=== PATIENT | female | born 2000 | race Caucasian/White ===

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

== ENCOUNTER 2020-01-18 12:38 | Emergency (ER) | payer BC, SELFPAY ==
[2020-01-18 12:40] VITALS: BP 126/87; PULSE 100; PULSE 107; RESP 18; TEMP 37.2; O2SAT 98; O2SAT 99; BMI 38.7
[2020-01-18] MEDS: 0.9% Normal Saline 1,000 ML 1000 ML IV (12:58)
[2020-01-18] MEDS: Metoclopramide 10 MG/2 ML Vial IV (12:58)
--- NOTE | 2020-01-18 13:43 | ED.DCSUM_ITS ---
- ER Visit Summary Date of Service: 01/18/20 Chief Complaint: Nausea and vomiting History of Present Illness: The patient is a 19 F who is 13 weeks . She had a previous ultrasound that showed a live intrauterine . She is denying any abdominal pain, vaginal bleeding, or vaginal discharge. She is having nausea and vomiting since yesterday. She took Zofran at home but it was not helping. She attempted a Phenergan suppository, but it did not help. She denies any other complaints today. Physical Examination: Afebrile and vital signs unremarkable except for heart rate of 107. Patient appears nontoxic and in no acute distress. Skin appears normal. Extremities nontender and without edema. Abdomen is soft. Test Results: None indicated Emergency Department Course and Treatment: Patient treated with IV fluids and Reglan. On reevaluation, she was feeling much better. No further nausea or vomiting. Patient requesting discharge. Will be discharged with a course of Reglan. Follow-up with INNERSOLE MAKER. Return for any new or worsening issues. Treatment Plan: As above Disposition: Discharge Impression: Nausea and vomiting in This note was generated with [employer] dictation software. It may contain incorrect words, spelling, and punctuation that were not noted in review of the chart prior to signing ED Disposition - Plan for ED Patient: Referrals: Damien Allred MD [Primary Care Provider] -
--- NOTE | 2020-01-18 13:45 | ED.DEP ---
ED Disposition - Plan for ED Patient: Instructions: ED Nausea Vomiting Adult Prescriptions: Metoclopramide [Reglan] 10 mg PO 4X/DAY PRN #20 tab PRN Reason: Headache Prescription Printed Additional Instructions: follow up with your automobile body customizer
[2020-01-18 15:46] VITALS: BP 104/59; PULSE 75; RESP 16; O2SAT 96
== END 2020-01-18 15:47 | disposition home or self-care (01) ==
LOC: ED 13:14
PROVIDERS: Emergency Provider Emergency Medicine; PCP Family Medicine
DX: O21.9 Vomiting of pregnancy, unspecified (principal); Z79.899 Other long term (current) drug therapy; Z3A.13 13 weeks gestation of pregnancy
CPT/HCPCS: 96361; 96374; 99283; J7030

== ENCOUNTER → 2020-02-10 | Outpatient (CLI) | payer BC, SELFPAY ==
[2020-01-18 12:40] VITALS: BMI 38.7
[2020-02-14 03:06] LABS: AFP MoM Value 1.24 (.); AFP Value-EIA 34.9 ng/mL (.); Comment Report (.); DIA MoM Value 0.45 (.); DIA Value-EIA 63.67 pg/mL (.); DSR (By Age) 1169 (.); DSR (Second Trimester) 10000 (.); Gestat. Age Based On As provided (.); Gestational Age 16.3 WEEKS (.); Insulin Dep Diabetes No (.); Maternal Age At EDD 19.6 yr (.); hCG MoM 0.67 (.); hCG Value 21920 mIU/mL (.)
== END | disposition home or self-care (01) ==
LOC: LABSPEC 14:45
PROVIDERS: PCP Family Medicine; Referring Provider Obstetrics & Gynecology; Visit Provider Obstetrics & Gynecology
DX: Z34.82 Encounter for supervision of other normal pregnancy, second trimester (principal)
CPT/HCPCS: 82105; 82677; 84702

== ENCOUNTER → 2020-02-17 | Outpatient (CLI) | payer BC, SELFPAY ==
[2020-01-18 12:40] VITALS: BMI 38.7
[2020-02-17 16:41] LABS: Color, Urine Yellow (Yellow); Glucose, Dipstick Normal (Normal); Ketone-Dipstick Negative (Negative); Leukocyte Esterase-Dipstick 500 /ul (Negative); Nitrite-Dipstick Negative (Negative); Occult Blood-Urine 10 /ul (Negative); Protein-Dipstick Negative (Negative); Specific Gravity, Urine 1.015 (1.002-1.030); Urine Bilirubin Dipstick Negative (Negative); Urine Clarity Sl. Cloudy (Clear); Urine Urobilinogen Normal (Normal)
--- OUTSIDE RECORDS SUMMARY | 2020-07-24 07:51 | XMS RPT_ITS | CCD ---
:2000 External Reference #:[id number] Author Organization [facility] Care Team Providers Name Role Phone Carolina FRAME COVERER, E Unavailable Unavailable Carolina FRAME COVERER, E Unavailable Unavailable Problems Category Problem Name Status Date Location Deficiency and other Anemia Completed 03-26-2017 - [facility] Now Clinic anemia (73761) Unclassified Contact with and Completed 03-26-2017 - [facility] Now Cli hank (suspected) exposure (27170) to other hazardous, chiefly nonmedicinal, chemicals Results Result Name Value Range Unit Interpretation Flag Date Location cbc on 2020-07-20 Erythrocyte distribution 19.3 11.5-15.5 % High 07-20 [facility] width (RBC) [Ratio] ([place]) (62605) Comment: Performed By: #### HFP, URIC , TSH, LD, ANEU, ADIFF, CBC #### [address] [address] Hematocrit (Bld) [Volume 27.2 34.0-46.0 % Low 07-20 [facility] fraction] ([place]) (0000 0) Comment: Performed By: #### HFP, URIC , TSH, LD, ANEU, ADIFF, CBC #### [address] [address] Hemoglobin (Bld) 8.7 12.0-16.0 G/dL Low 07-20-2020 [facility] [Mass/Vol] ([place]) (000 00) Comment: Performed By: #### HFP, URIC , TSH, LD, ANEU, ADIFF, CBC #### [address] [address] MCH (RBC) [Entitic mass] 27.0 27.0-33.0 pg Normal 07-20 [facility] ([place]) (0000 0) Comment: Performed By: #### HFP, URIC , TSH, LD, ANEU, ADIFF, CBC #### [address] [address] MCHC (RBC) [Mass/Vol] 32.1 32.0-36.0 G/dL Normal 07-20-20 20 [facility] ([place]) (0000 0) Comment: Performed By: #### HFP, URIC , TSH, LD, ANEU, ADIFF, CBC #### [address] [address] MCV (RBC) [Entitic vol] 84.0 80.0-99.0 fL Normal 2019 [facility] ([place]) (0000 0) Comment: Performed By: #### HFP, URIC , TSH, LD, ANEU, ADIFF, CBC #### [address] [address] Platelet mean volume 9.3 6.6-10.5 fL Normal 0 [facility] (Bld) [Entitic vol] ([place]) (23245) Comment: Performed By: #### HFP, URIC , TSH, LD, ANEU, ADIFF, CBC #### [address] [address] Platelets (Bld) [#/Vol] 192 150-450 10 3/mcL Normal 2019 [facility] ([place]) (05127) Comment: Performed By: #### HFP, URIC , TSH, LD, ANEU, ADIFF, CBC #### [address] [address] RBC (Bld) [#/Vol] 3.24 4.10-5.30 10 6/mcL Low 07-20-2020 [facility] ([place]) (0000 0) Comment: Performed By: #### HFP, URIC , TSH, LD, ANEU, ADIFF, CBC #### [address] [address] WBC (Bld) [#/Vol] 15.80 4.50-10.80 10 3/mcL High 07-20-2020 [facility] ([place]) (0000 0) Comment: Performed By: #### HFP, URIC , TSH, LD, ANEU, ADIFF, CBC #### [address] [address] .neuabs on Neutrophils (Bld) 14.00 2.25-8.10 10 3/mcL High 07-20-2020 [facility] [#/Vol] [facility] ([place]) ([address]178) Comment: Performed By: #### HFP, URIC , TSH, LD, ANEU, ADIFF, CBC #### [address] [address] .auto diff on 07-20 Ammonia (P) [Mass/Vol] 0.80 0.09-1.40 10 3/mcL Normal 020 [facility] ([place]) (44307) Comment: Performed By: #### HFP, URIC , TSH, LD, ANEU, ADIFF, CBC #### [address] [address] Basophils (Bld) 0.00 0.00-0.27 10 3/mcL Normal 07-20-2020 [facility] [#/Vol] [facility] ([place]) (93829) Comment: Performed By: #### HFP, URIC , TSH, LD, ANEU, ADIFF, CBC #### [address] [address] Basophils/100 WBC (Bld) 0.1 0.0-2.5 % Normal 2019 [facility] ([place]) (0000 0) Comment: Performed By: #### HFP, URIC , TSH, LD, ANEU, ADIFF, CBC #### [address] [address] Eosinophils (Bld) 0.00 0.00-0.65 10 3/mcL Normal 07-20-2020 [facility] [#/Vol] [facility] ([place]) (81809) Comment: Performed By: #### HFP, URIC , TSH, LD, ANEU, ADIFF, CBC #### [address] [address] Eosinophils/100 WBC (Bld) 0.1 0.0-6.0 % Normal [facility] ([place]) (0000 0) Comment: Performed By: #### HFP, URIC , TSH, LD, ANEU, ADIFF, CBC #### [address] [address] Lymphocytes (Bld) 0.90 0.90-4.32 10 3/mcL Normal 07-20-2020 [facility] [#/Vol] [facility] ([place]) (43651) Comment: Performed By: #### HFP, URIC , TSH, LD, ANEU, ADIFF, CBC #### [address] [address] Lymphocytes/100 WBC (Bld) 5.7 20.0-40.0 % Low 10- [facility] ([place]) (0000 0) Comment: Performed By: #### HFP, URIC , TSH, LD, ANEU, ADIFF, CBC #### [address] [address] Monocytes/100 WBC (Bld) 5.1 2.0-13.0 % Normal 2019 [facility] ([place]) (0000 0) Comment: Performed By: #### HFP, URIC , TSH, LD, ANEU, ADIFF, CBC #### [address] [address] Neutrophils/100 WBC (Bld) 89.0 50.0-75.0 % High 10- [facility] ([place]) (0000 0) Comment: Performed By: #### HFP, URIC , TSH, LD, ANEU, ADIFF, CBC #### [address] [address] tabs on 2020-07-18 Antibody Screen Tango Negative ABSC Normal [facility] ([place]) (0000 0) Comment: Performed By: #### HFP, URIC , TSH, LD, ANEU, ADIFF, CBC #### [address] [address] tabo on 2020-07-18 ABO/Rh Interp O POS 07-18-2020 [facility] ([place]) (91190) Comment: Performed By: #### HFP, URIC , TSH, LD, ANEU, ADIFF, CBC #### [facility] [address] [place], [place] [address] cbc on 2020-07-18 Erythrocyte distribution 18.6 11.5-15.5 % High 07-18 [facility] width (RBC) [Ratio] ([place]) (47847) Comment: Performed By: #### HFP, URIC , TSH, LD, ANEU, ADIFF, CBC #### [address] [address] Hematocrit (Bld) [Volume 30.0 34.0-46.0 % Low 07-18 [facility] fraction] ([place]) (0000 0) Comment: Performed By: #### HFP, URIC , TSH, LD, ANEU, ADIFF, CBC #### [address] [address] Hemoglobin (Bld) 9.8 12.0-16.0 G/dL Low 07-18-2020 [facility] [Mass/Vol] ([place]) (000 00) Comment: Performed By: #### HFP, URIC , TSH, LD, ANEU, ADIFF, CBC #### [address] [address] MCH (RBC) [Entitic mass] 27.6 27.0-33.0 pg Normal 07-18 [facility] ([place]) (0000 0) Comment: Performed By: #### HFP, URIC , TSH, LD, ANEU, ADIFF, CBC #### [address] [address] MCHC (RBC) [Mass/Vol] 32.5 32.0-36.0 G/dL Normal 07-18-20 [facility] ([place]) (0000 0) Comment: Performed By: #### HFP, URIC , TSH, LD, ANEU, ADIFF, CBC #### [address] [address] MCV (RBC) [Entitic vol] 84.9 80.0-99.0 fL Normal 2019 [facility] ([place]) (0000 0) Comment: Performed By: #### HFP, URIC , TSH, LD, ANEU, ADIFF, CBC #### [address] [address] Platelet mean volume 10.1 6.6-10.5 fL Normal 0 [facility] (d) [Entitic vol] ([place]) (63460) Comment: Performed By: #### HFP, URIC , TSH, LD, ANEU, ADIFF, CBC #### [address] [address] Platelets (Bld) [#/Vol] 197 150-450 10 3/mcL Normal 2019 [facility] ([place]) (79203) Comment: Performed By: #### HFP, URIC , TSH, LD, ANEU, ADIFF, CBC #### [place] [id number] RBC (Bld) [#/Vol] 3.54 4.10-5.30 10 6/mcL Low 07-18-2020 [facility] ([place]) (0000 0) Comment: Performed By: #### HFP, URIC , TSH, LD, ANEU, ADIFF, CBC #### [address] [address] WBC (Bld) [#/Vol] 9.00 4.50-10.80 10 3/mcL Normal 07-18-2020 [facility] ([place]) (56803) Comment: Performed By: #### HFP, URIC , TSH, LD, ANEU, ADIFF, CBC #### [address] [address] .morph on 7 Anisocytosis Ql (Bld) Slight Normal 07-18-20 20 [facility] ([place]) (22254) Comment: Performed By: #### HFP, URIC , TSH, LD, ANEU, ADIFF, CBC #### [address] [address] Platelets (Bld) [#/Vol] Normal Normal 2019 [facility] ([place]) (94352) Comment: Performed By: #### HFP, URIC , TSH, LD, ANEU, ADIFF, CBC #### [address] [address] Polychrom Slight Normal 07-18-2020 [facility] ([place]) (48653) Comment: Performed By: #### HFP, URIC , TSH, LD, ANEU, ADIFF, CBC #### [address] [address] .manual diff on 202 Basophil %, Manual 0.0 0.0-2.5 % Normal 07-18-2020 [facility] ([place]) (72022) Comment: Performed By: #### HFP, URIC , TSH, LD, ANEU, ADIFF, CBC #### [address] [address] Basophil, Abs Manual 0.00 0.00-0.27 10 3/mcL Normal 0 [facility] ([place]) (46161) Comment: Performed By: #### HFP, URIC , TSH, LD, ANEU, ADIFF, CBC #### [address] [address] Cells Counted 100 Normal 07-18-2020 [facility] ([place]) (30517) Comment: Performed By: #### HFP, URIC , TSH, LD, ANEU, ADIFF, CBC #### [address] [address] Eosinophil %, Manual 0.0 0.0-6.0 % Normal 0 [facility] ([place]) (84981) Comment: Performed By: #### HFP, URIC , TSH, LD, ANEU, ADIFF, CBC #### [address] [address] Eosinophil, Abs Manual 0.00 0.00-0.65 10 3/mcL Normal 020 [facility] ([place]) (03975) Comment: Performed By: #### HFP, URIC , TSH, LD, ANEU, ADIFF, CBC #### [address] [address] Lymphocyte %, Manual 11.0 20.0-40.0 % Low 0 [facility] ([place]) (42981) Comment: Performed By: #### HFP, URIC , TSH, LD, ANEU, ADIFF, CBC #### [address] [address] Lymphocyte, Abs Manual 0.99 0.90-4.32 10 3/mcL Normal 020 [facility] ([place]) (77338) Comment: Performed By: #### HFP, URIC , TSH, LD, ANEU, ADIFF, CBC #### [address] [address] Monocyte %, Manual 3.0 2.0-13.0 % Normal 07-18-2020 [facility] ([place]) (18667) Comment: Performed By: #### HFP, URIC , TSH, LD, ANEU, ADIFF, CBC #### [address] [address] Monocyte, Abs Manual 0.27 0.09-1.40 10 3/mcL Normal 0 [facility] ([place]) (86851) Comment: Performed By: #### HFP, URIC , TSH, LD, ANEU, ADIFF, CBC #### [address] [address] Myelocyte 1.0 % Normal 07-18-2020 [facility] ([place]) (92862) Comment: Performed By: #### HFP, URIC , TSH, LD, ANEU, ADIFF, CBC #### [address] [address] Neutrophil %, Manual 85.0 50.0-75.0 % High 0 [facility] ([place]) (90763) Comment: Performed By: #### HFP, URIC , TSH, LD, ANEU, ADIFF, CBC #### [address] [address] Neutrophil, Abs Manual 7.65 2.25-8.10 10 3/mcL Normal 020 [facility] ([place]) (97415) Comment: Performed By: #### HFP, URIC , TSH, LD, ANEU, ADIFF, CBC #### [address] [address] crcl ur on BSA Lab 2.12 Normal 07-10-2020 [facility] ([place]) (89482) Comment: Performed By: #### HFP, URIC , TSH, LD, ANEU, ADIFF, CBC #### [place] [address] Cr Clearance 110 88-128 ml/min/1.73sqm Normal 07-10-2020 [facility] ([place]) (0000 0) Comment: Performed By: #### HFP, URIC , TSH, LD, ANEU, ADIFF, CBC #### [place] [address] Creatinine [Mass/Vol] 0.49 0.50-1.20 mg/dL Low 07-10-20 20 [facility] ([place]) (0000 0) Comment: Performed By: #### HFP, URIC , TSH, LD, ANEU, ADIFF, CBC #### [place] [address] Height Lab 157.48 cm Normal 07-10-2020 [facility] ([place]) (73122) Comment: Performed By: #### HFP, URIC , TSH, LD, ANEU, ADIFF, CBC #### [place] [address] .tv creatinine on Collection Period 24 hour Normal 07-10-2020 [facility] ([place]) (22367) Comment: Performed By: #### HFP, URIC , TSH, LD, ANEU, ADIFF, CBC #### [place] [address] Creatinine [Mass/Vol] 0.9 0.6-1.6 g/24hr Normal 07-10-20 20 [facility] ([place]) (0000 0) Comment: Performed By: #### HFP, URIC , TSH, LD, ANEU, ADIFF, CBC #### [place] [address] U24 Total Volume 779 mL/24hr Normal 07-10-2020 [facility] ([place]) (05529) Comment: Performed By: #### HFP, URIC , TSH, LD, ANEU, ADIFF, CBC #### [place] [address] Creatinine [Mass/Vol] 121.9 mg/dL Normal 07-10-20 20 [facility] ([place]) (79125) Comment: Performed By: #### HFP, URIC , TSH, LD, ANEU, ADIFF, CBC #### [address] [address] cre on 2020-07-09 Creatinine [Mass/Vol] 0.49 0.50-1.20 mg/dL Low 07-09-20 20 [facility] ([place]) (0000 0) Comment: Performed By: #### HFP, URIC , TSH, LD, ANEU, ADIFF, CBC #### [address] [address] .gfr on 2020-07-09 GFR >60 Normal 0 [facility] ([place]) (62895) Comment: Result Comment: GFR Population mean for Afri can Portuguese, Non- Americans Ages 20-29 = 116 mL/min/1.73 sq.m. Ages 30-39 = 107 mL/min/1.73 sq.m. Ages 40-49 = 99 mL/min/1.73 sq.m. Ages 50-59 = 93 mL/min/1.73 sq.m. Ages 60-69 = 85 mL/min/1.73 sq.m. Ages 70+ = 75 mL/min/1.73 sq .m. Chronic Kidney Disease: Less than 60 mL/min/1.73 square meters End Stage Renal Disease: Les s than 15 mL/min/1.73 square meters Performed By: #### HFP, URIC , TSH, LD, ANEU, ADIFF, CBC #### [address] [address] GFR Non- >60 Normal 07-09 [facility] ([place]) (31875) Comment: Result Comment: GFR Population mean for Afri can Portuguese, Non- Americans Ages 20-29 = 116 mL/min/1.73 sq.m. Ages 30-39 = 107 mL/min/1.73 sq.m. Ages 40-49 = 99 mL/min/1.73 sq.m. Ages 50-59 = 93 mL/min/1.73 sq.m. Ages 60-69 = 85 mL/min/1.73 sq.m. Ages 70+ = 75 mL/min/1.73 sq .m. Chronic Kidney Disease: Less than 60 mL/min/1.73 square meters End Stage Renal Disease: Les s than 15 mL/min/1.73 square meters Performed By: #### HFP, URIC , TSH, LD, ANEU, ADIFF, CBC #### [address] [address] rpcur on 2020-07-06 Protein [Mass/Vol] 8.4 G/dL Normal 07-06-2020 [facility] ([place]) (79867) Comment: Performed By: #### HFP, URIC , TSH, LD, ANEU, ADIFF, CBC #### [address] [address] U Creatinine 42.9 mg/dL Normal 07-06-2020 [facility] ([place]) (14929) Comment: Performed By: #### HFP, URIC , TSH, LD, ANEU, ADIFF, CBC #### [address] [address] U Ratio Prot/Creat 0.2 ratio Normal 07-06-2020 [facility] ([place]) (57421) Comment: Result Comment: result calcu lated by rule GL_UR_PROT_NOTCALC_OLD (U Protein/U Creatinine) Performed By: #### HFP, URIC , TSH, LD, ANEU, ADIFF, CBC #### [address] [address] cur on 2020-07-06 CUR . Normal 07-06-2020 [facility] MICRO - Microbiology [facility] ([place]) ([id number]) PROCEDURE: Urine Culture [*1] SOURCE: Urine, Clean Catch BODY SITE: COLLECTED DATE/TIME: 07/04/20 20 16:32 EDT RECEIVED DATE/TIME: 07/04/2020 19:23 EDT START DATE/TIME: 07/04/2020 19:24 EDT FREE TEXT SOURCE: FINAL REPORTS Final Report [] Verified Date/Time/Personnel: 07/06/2020 08:05 EDT 50,000 - 100,000 cfu/ml Multiple bacterial morphotypes present. Probable Contamination. Suggest recollection if clinically indicated. PRELIMINARY REPORTS Preliminary Report [] Verified Date/Time/Personnel: 07/05/2020 11:38 EDT Culture results pending. Performing Locations *1: This test was performed at: [facility], [address] [place] [address], [id number] , [place] Comment: Performed By: #### HFP, URIC , TSH, LD, ANEU, ADIFF, CBC #### [address] [address] cmp on 2020-07-06 Albumin [Mass/Vol] 2.4 3.2-4.8 G/dL Low 07-06-2020 [facility] ([place]) (18736) Comment: Performed By: #### HFP, URIC , TSH, LD, ANEU, ADIFF, CBC #### [address] [address] Albumin/Globulin [Mass ratio] 0.7 0.9-1.6 ratio Low 07-06-2020 [facility] ([place]) (74787) Comment: Performed By: #### HFP, URIC , TSH, LD, ANEU, ADIFF, CBC #### [address] [address] ALP [Catalytic activity/Vol] 153 28-126 U/L High 0 07-06-2020 [facility] ([place]) (0000 0) Comment: Performed By: #### HFP, URIC , TSH, LD, ANEU, ADIFF, CBC #### [address] [address] ALT [Catalytic activity/Vol] <8 10-49 U/L Low 0 07-06-2020 [facility] ([place]) (0000 0) Comment: Performed By: #### HFP, URIC , TSH, LD, ANEU, ADIFF, CBC #### [address] [address] AST [Catalytic activity/Vol] 12 8-34 U/L Normal 0 07-06-2020 [facility] ([place]) (0000 0) Comment: Performed By: #### HFP, URIC , TSH, LD, ANEU, ADIFF, CBC #### [address] [address] Bili Total 0.20 0.20-1.20 mg/dL Normal 07-06-2020 [facility] ([place]) (75074) Comment: Result Comment: Use of this assay is not recommended for patients undergoing treatment with eltrombopag d ue to the potential for falsely elevated results. Performed By: #### HFP, URIC , TSH, LD, ANEU, ADIFF, CBC #### [address] [address] Calcium [Mass/Vol] 8.5 8.7-10.4 mg/dL Low 07-06-2020 [facility] ([place]) (76926) Comment: Result Comment: Note - New Reference Range in effect 20 Performed By: #### HFP, URIC , TSH, LD, ANEU, ADIFF, CBC #### [place] [id number] Chloride [Moles/Vol] 106 98-110 mEq/L Normal 0 [facility] ([place]) (0000 0) Comment: Performed By: #### HFP, URIC , TSH, LD, ANEU, ADIFF, CBC #### [address] [address] CO2 [Moles/Vol] 22 22-32 mEq/L Normal 07-06-2020 [facility] ([place]) (21725) Comment: Performed By: #### HFP, URIC , TSH, LD, ANEU, ADIFF, CBC #### [address] [address] Creatinine [Mass/Vol] 0.48 0.50-1.20 mg/dL Low 07-06-20 20 [facility] ([place]) (0000 0) Comment: Performed By: #### HFP, URIC , TSH, LD, ANEU, ADIFF, CBC #### [address] [address] Electrolyte Balance 10.0 4.0-15.0 mEq/L Normal 07-06-2020 [facility] ([place]) (0000 0) Comment: Performed By: #### HFP, URIC , TSH, LD, ANEU, ADIFF, CBC #### [address] [address] Globulin (S) [Mass/Vol] 3.3 1.5-3.8 G/dL Normal 2019 [facility] ([place]) (0000 0) Comment: Performed By: #### HFP, URIC , TSH, LD, ANEU, ADIFF, CBC #### [address] [address] Glucose [Mass/Vol] 102 70-110 mg/dL Normal 07-06-2020 [facility] ([place]) (48444) Comment: Performed By: #### HFP, URIC , TSH, LD, ANEU, ADIFF, CBC #### [address] [address] Potassium [Moles/Vol] 4.2 3.5-5.0 mEq/L Normal 07-06-20 [facility] ([place]) (0000 0) Comment: Performed By: #### HFP, URIC , TSH, LD, ANEU, ADIFF, CBC #### [address] [address] Protein [Mass/Vol] 5.7 5.7-8.2 G/dL Normal 07-06-2020 [facility] ([place]) (23035) Comment: Result Comment: Note - New Reference Range in effect 20 Performed By: #### HFP, URIC , TSH, LD, ANEU, ADIFF, CBC #### [address] [address] Sodium [Moles/Vol] 138 136-145 mEq/L Normal 07-06-2020 [facility] ([place]) (04508) Comment: Performed By: #### HFP, URIC , TSH, LD, ANEU, ADIFF, CBC #### [address] [address] Urea nitrogen [Mass/Vol] 6.0 8.0-22.0 mg/dL Low 07-06 [facility] ([place]) (0000 0) Comment: Performed By: #### HFP, URIC , TSH, LD, ANEU, ADIFF, CBC #### [address] [address] Urea nitrogen/Creatinine 12.5 10.0-22.0 ratio Normal 07-06 [facility] [Mass ratio] [facility] ([place]) (75507) Comment: Performed By: #### HFP, URIC , TSH, LD, ANEU, ADIFF, CBC #### [address] [address] cbc on 2020-07-06 Erythrocyte distribution 15.9 11.5-15.5 % High 07-06 [facility] width (RBC) [Ratio] ([place]) (20618) Comment: Performed By: #### HFP, URIC , TSH, LD, ANEU, ADIFF, CBC #### [address] [address] Hematocrit (Bld) [Volume 29.4 34.0-46.0 % Low 07-06 [facility] fraction] ([place]) (0000 0) Comment: Performed By: #### HFP, URIC , TSH, LD, ANEU, ADIFF, CBC #### [address] [address] Hemoglobin (Bld) 9.6 12.0-16.0 G/dL Low 07-06-2020 [facility] [Mass/Vol] ([place]) (000 00) Comment: Performed By: #### HFP, URIC , TSH, LD, ANEU, ADIFF, CBC #### [address] [address] MCH (RBC) [Entitic mass] 26.8 27.0-33.0 pg Low 07-06 [facility] ([place]) (0000 0) Comment: Performed By: #### HFP, URIC , TSH, LD, ANEU, ADIFF, CBC #### [address] [address] MCHC (RBC) [Mass/Vol] 32.6 32.0-36.0 G/dL Normal 07-06-20 [facility] ([place]) (0000 0) Comment: Performed By: #### HFP, URIC , TSH, LD, ANEU, ADIFF, CBC #### [address] [address] MCV (RBC) [Entitic vol] 82.2 80.0-99.0 fL Normal 2019 [facility] ([place]) (0000 0) Comment: Performed By: #### HFP, URIC , TSH, LD, ANEU, ADIFF, CBC #### [address] [address] Platelet mean volume 9.2 6.6-10.5 fL Normal 0 [facility] (Bld) [Entitic vol] ([place]) (73118) Comment: Performed By: #### HFP, URIC , TSH, LD, ANEU, ADIFF, CBC #### [address] [address] Platelets (Bld) [#/Vol] 222 150-450 10 3/mcL Normal 2019 [facility] ([place]) (24334) Comment: Performed By: #### HFP, URIC , TSH, LD, ANEU, ADIFF, CBC #### [address] [address] RBC (Bld) [#/Vol] 3.57 4.10-5.30 10 6/mcL Low 07-06-2020 [facility] ([place]) (0000 0) Comment: Performed By: #### HFP, URIC , TSH, LD, ANEU, ADIFF, CBC #### [address] [address] WBC (Bld) [#/Vol] 10.00 4.50-10.80 10 3/mcL Normal 07-06-2020 [facility] ([place]) (17028) Comment: Performed By: #### HFP, URIC , TSH, LD, ANEU, ADIFF, CBC #### [address] [address] .neuabs on Neutrophils (Bld) 8.10 2.25-8.10 10 3/mcL Normal 07-06-2020 [facility] [#/Vol] [facility] ([place]) (73803) Comment: Performed By: #### HFP, URIC , TSH, LD, ANEU, ADIFF, CBC #### [place] [id number] [address] [place] [address] .gfr on 2020-07-06 GFR Non- >60 Normal 07-06 [facility] ([place]) (56124) Comment: Result Comment: GFR Population mean for Afri can Portuguese, Non- Americans Ages 20-29 = 116 mL/min/1.73 sq.m. Ages 30-39 = 107 mL/min/1.73 sq.m. Ages 40-49 = 99 mL/min/1.73 sq.m. Ages 50-59 = 93 mL/min/1.73 sq.m. Ages 60-69 = 85 mL/min/1.73 sq.m. Ages 70+ = 75 mL/min/1.73 sq .m. Chronic Kidney Disease: Less than 60 mL/min/1.73 square meters End Stage Renal Disease: Les s than 15 mL/min/1.73 square meters Performed By: #### HFP, URIC , TSH, LD, ANEU, ADIFF, CBC #### [address] [address] GFR >60 Normal 0 [facility] ([place]) (27930) Comment: Result Comment: GFR Population mean for Afri can Portuguese, Non- Americans Ages 20-29 = 116 mL/min/1.73 sq.m. Ages 30-39 = 107 mL/min/1.73 sq.m. Ages 40-49 = 99 mL/min/1.73 sq.m. Ages 50-59 = 93 mL/min/1.73 sq.m. Ages 60-69 = 85 mL/min/1.73 sq.m. Ages 70+ = 75 mL/min/1.73 sq .m. Chronic Kidney Disease: Less than 60 mL/min/1.73 square meters End Stage Renal Disease: Les s than 15 mL/min/1.73 square meters Performed By: #### HFP, URIC , TSH, LD, ANEU, ADIFF, CBC #### [facility] [address] [place] [phone] .auto diff on 07-06 Ammonia (P) [Mass/Vol] 0.50 0.09-1.40 10 3/mcL Normal 020 [facility] ([place]) (98181) Comment: Performed By: #### HFP, URIC , TSH, LD, ANEU, ADIFF, CBC #### [address] [address] Basophils (Bld) 0.00 0.00-0.27 10 3/mcL Normal 07-06-2020 [facility] [#/Vol] [facility] ([place]) (07744) Comment: Performed By: #### HFP, URIC , TSH, LD, ANEU, ADIFF, CBC #### [address] [address] Basophils/100 WBC (Bld) 0.1 0.0-2.5 % Normal 2019 [facility] ([place]) (0000 0) Comment: Performed By: #### HFP, URIC , TSH, LD, ANEU, ADIFF, CBC #### [address] [address] Eosinophils (Bld) 0.00 0.00-0.65 10 3/mcL Normal 07-06-2020 [facility] [#/Vol] [facility] ([place]) (72769) Comment: Performed By: #### HFP, URIC , TSH, LD, ANEU, ADIFF, CBC #### [address] [address] Eosinophils/100 WBC (Bld) 0.4 0.0-6.0 % Normal 06-13 [facility] ([place]) (0000 0) Comment: Performed By: #### HFP, URIC , TSH, LD, ANEU, ADIFF, CBC #### [address] [address] Lymphocytes (Bld) 1.20 0.90-4.32 10 3/mcL Normal 07-06-2020 [facility] [#/Vol] [facility] ([place]) ([id number]) Comment: Performed By: #### HFP, URIC , TSH, LD, ANEU, ADIFF, CBC #### [address] [address] Lymphocytes/100 WBC (Bld) 12.4 20.0-40.0 % Low 06-13 [facility] ([place]) (0000 0) Comment: Performed By: #### HFP, URIC , TSH, LD, ANEU, ADIFF, CBC #### [address] [address] Monocytes/100 WBC (Bld) 5.4 2.0-13.0 % Normal 2019 [facility]) (0000 0) Comment: Performed By: #### HFP, URIC , TSH, LD, ANEU, ADIFF, CBC #### [address] [address] Neutrophils/100 WBC (Bld) 81.7 50.0-75.0 % High 09- [facility] ([place]) (0000 0) Comment: Performed By: #### HFP, URIC , TSH, LD, ANEU, ADIFF, CBC #### [address] [address] uamic on 2020-07-04 RBC (U) [#/Vol] Rare 0-2 Normal 07-04-2020 [facility] ([place] ([id number]) Comment: Performed By: #### HFP, URIC , TSH, LD, ANEU, ADIFF, CBC #### [address] [address] UA Bacteria 2+ Negative /hpf Abnormal 07-04-2020 [facility] ([place]) ([id number]) Comment: Performed By: #### HFP, URIC , TSH, LD, ANEU, ADIFF, CBC #### [address] [address] UA Squam Epithelial 3-5 0-20 Normal 07-04-2020 [facility] ([place]) (72097) Comment: Performed By: #### HFP, URIC , TSH, LD, ANEU, ADIFF, CBC #### [address] [address] UA WBC 10-20 0-5 Abnormal 07-04-2020 [facility] ([place]) ([id number]) Comment: Performed By: #### HFP, URIC , TSH, LD, ANEU, ADIFF, CBC #### [address] [address] ua on 2020-07-04 Color (U) Dark Yellow Normal 07-04-2020 [facility] ([place]) (10339) Comment: Performed By: #### HFP, URIC , TSH, LD, ANEU, ADIFF, CBC #### [address] [address] Glucose (U) [Mass/Vol] Negative Negative mg/dL Normal 020 [facility] ([place]) (08864) Comment: Performed By: #### HFP, URIC , TSH, LD, ANEU, ADIFF, CBC #### [address] [address] Ketones Ql (U) Trace Neg-Trace Normal 07-04-2020 [facility] ([place]) (75883) Comment: Performed By: #### HFP, URIC , TSH, LD, ANEU, ADIFF, CBC #### [address] [address] UA Appear Clear Clear Normal 07-04-2020 [facility] ([place]) (24992) Comment: Performed By: #### HFP, URIC , TSH, LD, ANEU, ADIFF, CBC #### [address] [address] UA Blood Negative Neg-Trace Normal 07-04-2020 [facility] ([place]) (00723) Comment: Performed By: #### HFP, URIC , TSH, LD, ANEU, ADIFF, CBC #### [address] [address] UA Leuk Est Moderate Negative Abnormal 07-04-2020 [facility] ([place]) (76497) Comment: Performed By: #### HFP, URIC , TSH, LD, ANEU, ADIFF, CBC #### [address] [address] UA Nitrite Negative Negative Normal 07-04-2020 [facility] ([place]) (78218) Comment: Performed By: #### HFP, URIC , TSH, LD, ANEU, ADIFF, CBC #### [address] [address] UA pH 6.5 5.0 - 8.0 Normal 07-04-2020 [facility] ([place]) (60148) Comment: Performed By: #### HFP, URIC , TSH, LD, ANEU, ADIFF, CBC #### [place] [address] UA Protein Trace Negative Normal 07-04-2020 [facility]) (47110) Comment: Performed By: #### HFP, URIC , TSH, LD, ANEU, ADIFF, CBC #### [place] [address] UA Spec Grav 1.025 1.006-1.029 Normal 07-04-2020 [facility] ([place]) ([id number]) Comment: Performed By: #### HFP, URIC , TSH, LD, ANEU, ADIFF, CBC #### [place] [address] UA Specimen Type Clean Catch Normal 07-04-2020 [facility] ([place]) (33504) Comment: Performed By: #### HFP, URIC , TSH, LD, ANEU, ADIFF, CBC #### [place] [address] UA Urobilinogen 1.0 0.2-1.0 E.U./dL Normal 07-04-2020 [facility] ([place]) (70711) Comment: Performed By: #### HFP, URIC , TSH, LD, ANEU, ADIFF, CBC #### [place] [address] Urobilinogen Qn (U) Negative Neg-Trace Normal 07-04-2020 [facility] ([place]) (0000 0) Comment: Performed By: #### HFP, URIC , TSH, LD, ANEU, ADIFF, CBC #### [address] [address] ldh on 2020-07-04 LDH 160 120-246 U/L Normal 07-04-2020 [facility] ([place]) (01743) Comment: Performed By: #### HFP, URIC , TSH, LD, ANEU, ADIFF, CBC #### [address] [address] ferr on 2020-07-04 Ferritin [Mass/Vol] 3.6 8.0-252.0 ng/mL Low 07-04-2020 [facility] ([place]) (15223) Comment: Performed By: #### HFP, URIC , TSH, LD, ANEU, ADIFF, CBC #### [address] [address] cmp on 2020-07-04 Albumin [Mass/Vol] 2.4 3.2-4.8 G/dL Low 07-04-2020 [facility] ([place]) (85445) Comment: Performed By: #### HFP, URIC , TSH, LD, ANEU, ADIFF, CBC #### [address] [address] Albumin/Globulin [Mass ratio] 0.7 0.9-1.6 ratio Low 07-04-2020 [facility] ([place]) (12306) Comment: Performed By: #### HFP, URIC , TSH, LD, ANEU, ADIFF, CBC #### [address] [address] ALP [Catalytic activity/Vol] 155 28-126 U/L High 0 07-04-2020 [facility] ([place]) (0000 0) Comment: Performed By: #### HFP, URIC , TSH, LD, ANEU, ADIFF, CBC #### [address] [address] ALT [Catalytic activity/Vol] <8 10-49 U/L Low 0 07-04-2020 [facility] ([place]) (0000 0) Comment: Performed By: #### HFP, URIC , TSH, LD, ANEU, ADIFF, CBC #### [address] [address] AST [Catalytic activity/Vol] 10 8-34 U/L Normal 0 07-04-2020 [facility] ([place]) (0000 0) Comment: Performed By: #### HFP, URIC , TSH, LD, ANEU, ADIFF, CBC #### [address] [address] Bili Total 0.30 0.20-1.20 mg/dL Normal 07-04-2020 [facility] ([place]) (28978) Comment: Result Comment: Use of this assay is not recommended for patients undergoing treatment with eltrombopag d ue to the potential for falsely elevated results. Performed By: #### HFP, URIC , TSH, LD, ANEU, ADIFF, CBC #### [address] [address] Calcium [Mass/Vol] 8.7 8.7-10.4 mg/dL Normal 07-04-2020 [facility] ([place]) (0000 0) Comment: Result Comment: Note - New Reference Range in effect 20 Performed By: #### HFP, URIC , TSH, LD, ANEU, ADIFF, CBC #### [address] [address] Chloride [Moles/Vol] 108 98-110 mEq/L Normal 0 [facility] ([place]) (0000 0) Comment: Performed By: #### HFP, URIC , TSH, LD, ANEU, ADIFF, CBC #### [address] [address] CO2 [Moles/Vol] 24 22-32 mEq/L Normal 07-04-2020 [facility] ([place]) (88318) Comment: Performed By: #### HFP, URIC , TSH, LD, ANEU, ADIFF, CBC #### [address] [address] Creatinine [Mass/Vol] 0.51 0.50-1.20 mg/dL Normal 07-04-20 20 [facility] ([place]) (12687) Comment: Performed By: #### HFP, URIC , TSH, LD, ANEU, ADIFF, CBC #### [address] [address] Electrolyte Balance 6.0 4.0-15.0 mEq/L Normal 07-04-2020 [facility] ([place]) (0000 0) Comment: Performed By: #### HFP, URIC , TSH, LD, ANEU, ADIFF, CBC #### [address] [address] Globulin (S) [Mass/Vol] 3.5 1.5-3.8 G/dL Normal 2019 [facility] ([place]) (0000 0) Comment: Performed By: #### HFP, URIC , TSH, LD, ANEU, ADIFF, CBC #### [address] [address] Glucose [Mass/Vol] 87 70-110 mg/dL Normal 07-04-2020 [facility] ([place]) (24108) Comment: Performed By: #### HFP, URIC , TSH, LD, ANEU, ADIFF, CBC #### [address] [address] Potassium [Moles/Vol] 4.1 3.5-5.0 mEq/L Normal 07-04-20 [facility] ([place]) (0000 0) Comment: Performed By: #### HFP, URIC , TSH, LD, ANEU, ADIFF, CBC #### [address] [address] Protein [Mass/Vol] 5.9 5.7-8.2 G/dL Normal 07-04-2020 [facility] ([place]) (48016) Comment: Result Comment: Note - New Reference Range in effect 20 Performed By: #### HFP, URIC , TSH, LD, ANEU, ADIFF, CBC #### [address] [address] Sodium [Moles/Vol] 138 136-145 mEq/L Normal 07-04-2020 [facility] ([place]) (70657) Comment: Performed By: #### HFP, URIC , TSH, LD, ANEU, ADIFF, CBC #### [address] [address] Urea nitrogen [Mass/Vol] 6.0 8.0-22.0 mg/dL Low 07-04 [facility] ([place]) (0000 0) Comment: Performed By: #### HFP, URIC , TSH, LD, ANEU, ADIFF, CBC #### [address] [address] Urea nitrogen/Creatinine 11.8 10.0-22.0 ratio Normal 07-04 [facility] [Mass ratio] [facility] ([place]) (62225) Comment: Performed By: #### HFP, URIC , TSH, LD, ANEU, ADIFF, CBC #### [address] [address] cbc on 2020-07-04 Erythrocyte distribution 15.5 11.5-15.5 % Normal 07-04 [facility] (RBC) [Ratio] [facility] ([place]) (57785) Comment: Performed By: #### HFP, URIC , TSH, LD, ANEU, ADIFF, CBC #### [place] [id number] Hematocrit (Bld) [Volume 29.4 34.0-46.0 % Low 07-04 [facility] fraction] ([place]) (0000 0) Comment: Performed By: #### HFP, URIC , TSH, LD, ANEU, ADIFF, CBC #### [place] [id number] Hemoglobin (Bld) 9.5 12.0-16.0 G/dL Low 07-04-2020 [facility] [Mass/Vol] ([place]) (000 00) Comment: Performed By: #### HFP, URIC , TSH, LD, ANEU, ADIFF, CBC #### [address] [address] MCH (RBC) [Entitic mass] 26.8 27.0-33.0 pg Low 07-04 [facility] ([place]) (0000 0) Comment: Performed By: #### HFP, URIC , TSH, LD, ANEU, ADIFF, CBC #### [address] [address] MCHC (RBC) [Mass/Vol] 32.4 32.0-36.0 G/dL Normal 07-04-20 20 [facility] ([place]) (0000 0) Comment: Performed By: #### HFP, URIC , TSH, LD, ANEU, ADIFF, CBC #### [address] [address] MCV (RBC) [Entitic vol] 82.6 80.0-99.0 fL Normal 2019 [facility] ([place]) (0000 0) Comment: Performed By: #### HFP, URIC , TSH, LD, ANEU, ADIFF, CBC #### [address] [address] Platelet mean volume 9.4 6.6-10.5 fL Normal 0 [facility] (Bld) [Entitic vol] ([place]) (71618) Comment: Performed By: #### HFP, URIC , TSH, LD, ANEU, ADIFF, CBC #### [address] [address] Platelets (Bld) [#/Vol] 227 150-450 10 3/mcL Normal 2019 [facility] ([place]) (34300) Comment: Performed By: #### HFP, URIC , TSH, LD, ANEU, ADIFF, CBC #### [address] [address] RBC (Bld) [#/Vol] 3.56 4.10-5.30 10 6/mcL Low 07-04-2020 [facility] ([place]) (0000 0) Comment: Performed By: #### HFP, URIC , TSH, LD, ANEU, ADIFF, CBC #### [address] [address] WBC (Bld) [#/Vol] 10.10 4.50-10.80 10 3/mcL Normal 07-04-2020 [facility] ([place]) (86843) Comment: Performed By: #### HFP, URIC , TSH, LD, ANEU, ADIFF, CBC #### [address] [address] .neuabs on Neutrophils (Bld) 7.70 2.25-8.10 10 3/mcL Normal 07-04-2020 [facility] [#/Vol] [facility] ([place]) (36242) Comment: Performed By: #### HFP, URIC , TSH, LD, ANEU, ADIFF, CBC #### [address] [address] .gfr on 2020-07-04 GFR Non- >60 Normal 07-04 [facility] ([place]) (61682) Comment: Result Comment: GFR Population mean for Afri can Portuguese, Non- Americans Ages 20-29 = 116 mL/min/1.73 sq.m. Ages 30-39 = 107 mL/min/1.73 sq.m. Ages 40-49 = 99 mL/min/1.73 sq.m. Ages 50-59 = 93 mL/min/1.73 sq.m. Ages 60-69 = 85 mL/min/1.73 sq.m. Ages 70+ = 75 mL/min/1.73 sq .m. Chronic Kidney Disease: Less than 60 mL/min/1.73 square meters End Stage Renal Disease: Les s than 15 mL/min/1.73 square meters Performed By: #### HFP, URIC , TSH, LD, ANEU, ADIFF, CBC #### [address] [address] GFR >60 Normal 0 [facility] ([place]) (49224) Comment: Result Comment: GFR Population mean for Afri can Portuguese, Non- Americans Ages 20-29 = 116 mL/min/1.73 sq.m. Ages 30-39 = 107 mL/min/1.73 sq.m. Ages 40-49 = 99 mL/min/1.73 sq.m. Ages 50-59 = 93 mL/min/1.73 sq.m. Ages 60-69 = 85 mL/min/1.73 sq.m. Ages 70+ = 75 mL/min/1.73 sq .m. Chronic Kidney Disease: Less than 60 mL/min/1.73 square meters End Stage Renal Disease: Les s than 15 mL/min/1.73 square meters Performed By: #### HFP, URIC , TSH, LD, ANEU, ADIFF, CBC #### [address] [address] .auto diff on 07-04 Ammonia (P) [Mass/Vol] 0.80 0.09-1.40 10 3/mcL Normal 020 [facility] ([place]) (68725) Comment: Performed By: #### HFP, URIC , TSH, LD, ANEU, ADIFF, CBC #### [address] [address] Basophils (Bld) 0.00 0.00-0.27 10 3/[facility] Normal 07-04-2020 [facility] [#/Vol] [facility] ([place]) (09317) Comment: Performed By: #### HFP, URIC , TSH, LD, ANEU, ADIFF, CBC #### [address] [address] Basophils/100 WBC (Bld) 0.1 0.0-2.5 % Normal 2019 [facility] ([place]) (0000 0) Comment: Performed By: #### HFP, URIC , TSH, LD, ANEU, ADIFF, CBC #### [address] [address] Eosinophils (Bld) 0.00 0.00-0.65 10 3/[facility] Normal 07-04-2020 [facility] [#/Vol] [facility] ([place]) (29362) Comment: Performed By: #### HFP, URIC , TSH, LD, ANEU, ADIFF, CBC #### [address] [address] Eosinophils/100 WBC (Bld) 0.4 0.0-6.0 % Normal 06-13 [facility] ([place]) (0000 0) Comment: Performed By: #### HFP, URIC , TSH, LD, ANEU, ADIFF, CBC #### [address] [address] Lymphocytes (Bld) 1.60 0.90-4.32 10 3/[facility] Normal 07-04-2020 [facility] [#/Vol] [facility] ([place]) (06362) Comment: Performed By: #### HFP, URIC , TSH, LD, ANEU, ADIFF, CBC #### [address] [address] Lymphocytes/100 WBC (Bld) 15.5 20.0-40.0 % Low 06-13 [facility] ([place]) (0000 0) Comment: Performed By: #### HFP, URIC , TSH, LD, ANEU, ADIFF, CBC #### [address] [address] Monocytes/100 WBC (Bld) 7.5 2.0-13.0 % Normal 2019 [facility] ([place]) (0000 0) Comment: Performed By: #### HFP, URIC , TSH, LD, ANEU, ADIFF, CBC #### [address] [address] Neutrophils/100 WBC (Bld) 76.5 50.0-75.0 % High 06-13 [facility] ([place]) (0000 0) Comment: Performed By: #### HFP, URIC , TSH, LD, ANEU, ADIFF, CBC #### [address] [address] cur on 2020-07-03 CUR . Normal 07-03-2020 [facility] MICRO - Microbiology [facility]) ([id number]) PROCEDURE: Urine Culture [*1] SOURCE: Urine, Clean Catch BODY SITE: COLLECTED DATE/TIME: 07/02/20 12:07 EDT RECEIVED DATE/TIME: 07/02/2020 16:42 EDT START DATE/TIME: 07/02/2020 16:43 EDT FREE TEXT SOURCE: FINAL REPORTS Final Report [] Verified Date/Time/Personnel: 07/03/2020 11:08 EDT 50,000 - 100,000 cfu/ml Multiple bacterial morphotypes present. Probable Contamination. Suggest recollection if clinically indicated. Performing Locations *1: This test was performed at: [facility], [address] [place] [address], [id number] , [place] Comment: Performed By: #### HFP, URIC , TSH, LD, ANEU, ADIFF, CBC #### [address] [address] uamic on 2020-07-02 RBC (U) [#/Vol] Negative 0-2 /uL Normal 07-02-2020 [facility] ([place]) (38112) Comment: Performed By: #### HFP, URIC , TSH, LD, ANEU, ADIFF, CBC #### [address] [address] UA Bacteria 1+ Negative /hpf Abnormal 07-02-2020 [facility] ([place]) (24749) Comment: Performed By: #### HFP, URIC , TSH, LD, ANEU, ADIFF, CBC #### [address] [address] UA Mucous 1+ /hpf Normal 07-02-2020 [facility] ([place]) (94606) Comment: Performed By: #### HFP, URIC , TSH, LD, ANEU, ADIFF, CBC #### [address] [address] UA Squam Epithelial 10-20 0-20 Normal 07-02-2020 [facility] ([place]) (92131) Comment: Performed By: #### HFP, URIC , TSH, LD, ANEU, ADIFF, CBC #### [address] [address] UA WBC 5-10 0-5 Abnormal 07-02-2020 [facility] ([place]) (03959) Comment: Performed By: #### HFP, URIC , TSH, LD, ANEU, ADIFF, CBC #### [place] [address] UA Yeast Trace Abnormal 07-02-2020 [facility] ([place]) (86205) Comment: Performed By: #### HFP, URIC , TSH, LD, ANEU, ADIFF, CBC #### [address] [address] ua on 2020-07-02 Color (U) Yellow Normal 07-02-2020 [facility] ([place]) (67311) Comment: Performed By: #### HFP, URIC , TSH, LD, ANEU, ADIFF, CBC #### [address] [address] Glucose (U) [Mass/Vol] Negative Negative mg/dL Normal 020 [facility] ([place]) (55175) Comment: Performed By: #### HFP, URIC , TSH, LD, ANEU, ADIFF, CBC #### [address] [address] Ketones Ql (U) Negative Neg-Trace Normal 07-02-2020 [facility] ([place]) (62512) Comment: Performed By: #### HFP, URIC , TSH, LD, ANEU, ADIFF, CBC #### [address] [address] UA Appear Cloudy Clear Abnormal 07-02-2020 [facility] ([place]) (26149) Comment: Performed By: #### HFP, URIC , TSH, LD, ANEU, ADIFF, CBC #### [address] [address] UA Blood Negative Neg-Trace Normal 07-02-2020 [facility] ([place]) (43125) Comment: Performed By: #### HFP, URIC , TSH, LD, ANEU, ADIFF, CBC #### [address] [address] UA Leuk Est Moderate Negative Abnormal 07-02-2020 [facility] ([place]) (58037) Comment: Performed By: #### HFP, URIC , TSH, LD, ANEU, ADIFF, CBC #### [address] [address] UA Nitrite Negative Negative Normal 07-02-2020 [facility] ([place]) (30883) Comment: Performed By: #### HFP, URIC , TSH, LD, ANEU, ADIFF, CBC #### [address] [address] UA pH 7.0 5.0 - 8.0 Normal 07-02-2020 [facility] ([place]) (18483) Comment: Performed By: #### HFP, URIC , TSH, LD, ANEU, ADIFF, CBC #### [address] [address] UA Protein Negative Negative Normal 07-02-2020 [facility] ([place]) (14689) Comment: Performed By: #### HFP, URIC , TSH, LD, ANEU, ADIFF, CBC #### [address] [address] UA Spec Grav 1.020 1.006-1.029 Normal 07-02-2020 [facility] ([place]) (06940) Comment: Performed By: #### HFP, URIC , TSH, LD, ANEU, ADIFF, CBC #### [address] [address] UA Specimen Type Clean Catch Normal 07-02-2020 [facility] ([place]) (79453) Comment: Performed By: #### HFP, URIC , TSH, LD, ANEU, ADIFF, CBC #### [address] [address] UA Urobilinogen 1.0 0.2-1.0 E.U./dL Normal 07-02-2020 [facility] ([place]) (59375) Comment: Performed By: #### HFP, URIC , TSH, LD, ANEU, ADIFF, CBC #### [address] [address] Urobilinogen Qn (U) Negative Neg-Trace Normal 07-02-2020 [facility] ([place]) (0000 0) Comment: Performed By: #### HFP, URIC , TSH, LD, ANEU, ADIFF, CBC #### [address] [address] rpcur on 2020-07-02 Protein [Mass/Vol] 29.8 G/dL Normal 07-02-2020 [facility] ([place]) (45918) Comment: Performed By: #### HFP, URIC , TSH, LD, ANEU, ADIFF, CBC #### [address] [address] U Creatinine 134.2 mg/dL Normal 07-02-2020 [facility] ([place]) (89807) Comment: Performed By: #### HFP, URIC , TSH, LD, ANEU, ADIFF, CBC #### [address] [address] U Ratio Prot/Creat 0.2 ratio Normal 07-02-2020 [facility] ([place]) (59118) Comment: Result Comment: result calcu lated by rule [id number]_OLD (U Protein/U Creatinine) Performed By: #### HFP, URIC , TSH, LD, ANEU, ADIFF, CBC #### [address] [address] ldh on 2020-07-02 LDH 167 120-246 U/L Normal 07-02-2020 [facility] ([place]) (21318) Comment: Performed By: #### HFP, URIC , TSH, LD, ANEU, ADIFF, CBC #### [address] [address] cmp on 2020-07-02 Albumin [Mass/Vol] 2.4 3.2-4.8 G/dL Low 07-02-2020 [facility] ([place]) (05026) Comment: Performed By: #### HFP, URIC , TSH, LD, ANEU, ADIFF, CBC #### [place] [address] Albumin/Globulin [Mass ratio] 0.8 0.9-1.6 ratio Low 07-02-2020 [facility] ([place]) (75947) Comment: Performed By: #### HFP, URIC , TSH, LD, ANEU, ADIFF, CBC #### [place] [address] ALP [Catalytic activity/Vol] 153 28-126 U/L High 0 07-02-2020 [facility] ([place]) (0000 0) Comment: Performed By: #### HFP, URIC , TSH, LD, ANEU, ADIFF, CBC #### [place] [address] ALT [Catalytic activity/Vol] 9 10-49 U/L Low 0 07-02-2020 [facility] ([place]) (0000 0) Comment: Performed By: #### HFP, URIC , TSH, LD, ANEU, ADIFF, CBC #### [place] [id number] AST [Catalytic activity/Vol] 10 8-34 U/L Normal 0 07-02-2020 [facility] ([place]) (0000 0) Comment: Performed By: #### HFP, URIC , TSH, LD, ANEU, ADIFF, CBC #### [place] [address] Bili Total 0.20 0.20-1.20 mg/dL Normal 07-02-2020 [facility] ([place]) (18473) Comment: Result Comment: Use of this assay is not recommended for patients undergoing treatment with eltrombopag d ue to the potential for falsely elevated results. Performed By: #### HFP, URIC , TSH, LD, ANEU, ADIFF, CBC #### [address] [address] Calcium [Mass/Vol] 8.5 8.7-10.4 mg/dL Low 07-02-2020 [facility] ([place]) (63004) Comment: Result Comment: Note - New Reference Range in effect 20 Performed By: #### HFP, URIC , TSH, LD, ANEU, ADIFF, CBC #### [address] [address] Chloride [Moles/Vol] 106 98-110 mEq/L Normal 0 [facility] ([place]) (0000 0) Comment: Performed By: #### HFP, URIC , TSH, LD, ANEU, ADIFF, CBC #### [address] [address] CO2 [Moles/Vol] 22 22-32 mEq/L Normal 07-02-2020 [facility] ([place]) (69182) Comment: Performed By: #### HFP, URIC , TSH, LD, ANEU, ADIFF, CBC #### [address] [address] Creatinine [Mass/Vol] 0.45 0.50-1.20 mg/dL Low 07-02-20 20 [facility] ([place]) (0000 0) Comment: Performed By: #### HFP, URIC , TSH, LD, ANEU, ADIFF, CBC #### [address] [address] Electrolyte Balance 9.0 4.0-15.0 mEq/L Normal 07-02-2020 [facility] ([place]) (0000 0) Comment: Performed By: #### HFP, URIC , TSH, LD, ANEU, ADIFF, CBC #### [address] [address] Globulin (S) [Mass/Vol] 3.2 1.5-3.8 G/dL Normal 2019 [facility] ([place]) (0000 0) Comment: Performed By: #### HFP, URIC , TSH, LD, ANEU, ADIFF, CBC #### [address] [address] Glucose [Mass/Vol] 84 70-110 mg/dL Normal 07-02-2020 [facility] ([place]) (31819) Comment: Performed By: #### HFP, URIC , TSH, LD, ANEU, ADIFF, CBC #### [address] [address] Potassium [Moles/Vol] 4.1 3.5-5.0 mEq/L Normal 07-02-20 20 [facility] ([place]) (0000 0) Comment: Performed By: #### HFP, URIC , TSH, LD, ANEU, ADIFF, CBC #### [address] [address] Protein [Mass/Vol] 5.6 5.7-8.2 G/dL Low 07-02-2020 [facility] ([place]) (03270) Comment: Result Comment: Note - New Reference Range in effect 20 Performed By: #### HFP, URIC , TSH, LD, ANEU, ADIFF, CBC #### [address] [address] Sodium [Moles/Vol] 137 136-145 mEq/L Normal 07-02-2020 [facility] ([place]) (69791) Comment: Performed By: #### HFP, URIC , TSH, LD, ANEU, ADIFF, CBC #### [address] [address] Urea nitrogen [Mass/Vol] 5.0 8.0-22.0 mg/dL Low 07-02 [facility] ([place]) (0000 0) Comment: Performed By: #### HFP, URIC , TSH, LD, ANEU, ADIFF, CBC #### [address] [address] Urea nitrogen/Creatinine 11.1 10.0-22.0 ratio Normal 07-02 [facility] [Mass ratio] [facility] ([place]) (49027) Comment: Performed By: #### HFP, URIC , TSH, LD, ANEU, ADIFF, CBC #### [address] [address] cbc on 2020-07-02 Erythrocyte distribution 15.9 11.5-15.5 % High 07-02 [facility] width (RBC) [Ratio] ([place]) (10603) Comment: Performed By: #### HFP, URIC , TSH, LD, ANEU, ADIFF, CBC #### [place] [id number] Hematocrit (Bld) [Volume 30.4 34.0-46.0 % Low 07-02 [facility] fraction] ([place]) (0000 0) Comment: Performed By: #### HFP, URIC , TSH, LD, ANEU, ADIFF, CBC #### [place] [address] Hemoglobin (Bld) 9.8 12.0-16.0 G/dL Low 07-02-2020 [facility] [Mass/Vol] ([place]) (000 00) Comment: Performed By: #### HFP, URIC , TSH, LD, ANEU, ADIFF, CBC #### [address] [address] MCH (RBC) [Entitic mass] 26.9 27.0-33.0 pg Low 07-02 [facility] ([place]) (0000 0) Comment: Performed By: #### HFP, URIC , TSH, LD, ANEU, ADIFF, CBC #### [place] [id number] MCHC (RBC) [Mass/Vol] 32.4 32.0-36.0 G/dL Normal 07-02-20 [facility] ([place]) (0000 0) Comment: Performed By: #### HFP, URIC , TSH, LD, ANEU, ADIFF, CBC #### [address] [address] MCV (RBC) [Entitic vol] 83.1 80.0-99.0 fL Normal 2019 [facility] ([place]) (0000 0) Comment: Performed By: #### HFP, URIC , TSH, LD, ANEU, ADIFF, CBC #### [address] [address] Platelet mean volume 9.8 6.6-10.5 fL Normal 0 [facility] (d) [Entitic vol] ([place]) (61735) Comment: Performed By: #### HFP, URIC , TSH, LD, ANEU, ADIFF, CBC #### [place] [id number] Platelets (Bld) [#/Vol] 215 150-450 10 3/mcL Normal 2019 [facility] ([place]) ([address]) Comment: Performed By: #### HFP, URIC , TSH, LD, ANEU, ADIFF, CBC #### [place] [address] RBC (Bld) [#/Vol] 3.66 4.10-5.30 10 6/mcL Low 07-02-2020 [facility] ([place]) (0000 0) Comment: Performed By: #### HFP, URIC , TSH, LD, ANEU, ADIFF, CBC #### [place] [address] WBC (Bld) [#/Vol] 9.40 4.50-10.80 10 3/mcL Normal 07-02-2020 [facility] ([place]) ([address]) Comment: Performed By: #### HFP, URIC , TSH, LD, ANEU, ADIFF, CBC #### [place] [address] .neuabs on Neutrophils (Bld) 7.20 2.25-8.10 10 3/mcL Normal 07-02-2020 A [facility] [#/Vol] [facility] ([place]) ([id number]) Comment: Performed By: #### HFP, URIC , TSH, LD, ANEU, ADIFF, CBC #### [address] [address] .gfr on 2020-07-02 GFR >60 Normal 0 [facility] ([place]) ([id number]) Comment: Result Comment: GFR Population mean for Afri can Portuguese, Non- Americans Ages 20-29 = 116 mL/min/1.73 sq.m. Ages 30-39 = 107 mL/min/1.73 sq.m. Ages 40-49 = 99 mL/min/1.73 sq.m. Ages 50-59 = 93 mL/min/1.73 sq.m. Ages 60-69 = 85 mL/min/1.73 sq.m. Ages 70+ = 75 mL/min/1.73 sq .m. Chronic Kidney Disease: Less than 60 mL/min/1.73 square meters End Stage Renal Disease: Les s than 15 mL/min/1.73 square meters Performed By: #### HFP, URIC , TSH, LD, ANEU, ADIFF, CBC #### [address] [address] GFR Non- >60 Normal 07-02 [facility] ([place] ([id number]) Comment: Result Comment: GFR Population mean for Afri can Portuguese, Non- Americans Ages 20-29 = 116 mL/min/1.73 sq.m. Ages 30-39 = 107 mL/min/1.73 sq.m. Ages 40-49 = 99 mL/min/1.73 sq.m. Ages 50-59 = 93 mL/min/1.73 sq.m. Ages 60-69 = 85 mL/min/1.73 sq.m. Ages 70+ = 75 mL/min/1.73 sq .m. Chronic Kidney Disease: Less than 60 mL/min/1.73 square meters End Stage Renal Disease: Les s than 15 mL/min/1.73 square meters Performed By: #### HFP, URIC , TSH, LD, ANEU, ADIFF, CBC #### [address] [address] .auto diff on 07-02 Ammonia (P) [Mass/Vol] 0.70 0.09-1.40 10 3/mcL Normal 020 [facility] ([place] ([id number]) Comment: Performed By: #### HFP, URIC , TSH, LD, ANEU, ADIFF, CBC #### [address] [address] Basophils (Bld) 0.00 0.00-0.27 10 3/mcL Normal 07-02-2020 [facility] [#/Vol] [facility] ([place]) ([id number]) Comment: Performed By: #### HFP, URIC , TSH, LD, ANEU, ADIFF, CBC #### [address] [address] Basophils/100 WBC (Bld) 0.3 0.0-2.5 % Normal 2019 [facility] ([place] (0000 0) Comment: Performed By: #### HFP, URIC , TSH, LD, ANEU, ADIFF, CBC #### [address] [address] Eosinophils (Bld) 0.10 0.00-0.65 10 3/[facility] Normal 07-02-2020 [facility] [#/Vol] [facility] ([place] ([id number]) Comment: Performed By: #### HFP, URIC , TSH, LD, ANEU, ADIFF, CBC #### [address] [address] Eosinophils/100 WBC (Bld) 0.7 0.0-6.0 % Normal 06-13 [facility] ([place] (0000 0) Comment: Performed By: #### HFP, URIC , TSH, LD, ANEU, ADIFF, CBC #### [address] [address] Lymphocytes (Bld) 1.40 0.90-4.32 10 3/[facility] Normal 07-02-2020 [facility] [#/Vol] [facility] ([place]) ([address]25) Comment: Performed By: #### HFP, URIC , TSH, LD, ANEU, ADIFF, CBC #### [address] [address] Lymphocytes/100 WBC (Bld) 14.6 20.0-40.0 % Low 06-13 [facility] ([place]) (0000 0) Comment: Performed By: #### HFP, URIC , TSH, LD, ANEU, ADIFF, CBC #### [address] [address] Monocytes/100 WBC (Bld) 7.7 2.0-13.0 % Normal 2019 [facility] ([place]) (0000 0) Comment: Performed By: #### HFP, URIC , TSH, LD, ANEU, ADIFF, CBC #### [address] [address] Neutrophils/100 WBC (Bld) 76.7 50.0-75.0 % High 09-2 -2019 [facility]) (0000 0) Comment: Performed By: #### HFP, URIC , TSH, LD, ANEU, ADIFF, CBC #### [address] [address] gbpcr on 2020-06-30 GBPCR . Normal 06-30-2020 [facility] MICRO - Microbiology [facility] ([id number]) PROCEDURE: Group B Strep PCR [*1] SOURCE: Vaginal Rectal BODY SITE: COLLECTED DATE/TIME: 06/29/20 13:46 EDT RECEIVED DATE/TIME: 06/29/2020 14:32 EDT START DATE/TIME: 06/29/2020 14:32 EDT FREE TEXT SOURCE: FINAL REPORTS Final Report [] Verified Date/Time/Personnel: 06/30/2020 11:18 EDT GBS NEGATIVE. Group B Streptococcus DNA not detected by Real-Time. Polymerase Chain Reaction (PCR). A negative result does not rule out the possibility of Group B Streptococcus False negative results may occur when Group B Streptococcus concentration is below the level of detection of 200 CFU/mL of sample preparation reagent. If the patient has signs or symptoms of infection, other laboratory tests and clinical information should be used to confirm the negative result. This test is not intended to differentiate carriers of Group B Streptococcus from those with Streptococcus disease. Performing Locations *1: This test was performed at: [facility], [address] [place] [address], [address]- , [place] Comment: Performed By: #### HFP, URIC , TSH, LD, ANEU, ADIFF, CBC #### [address] [address] uamic on 2020-06-29 RBC (U) [#/Vol] Rare 0-2 Normal 06-29-2020 [facility]) ([id number]) Comment: Performed By: #### HFP, URIC , TSH, LD, ANEU, ADIFF, CBC #### [address] [address] UA Bacteria 4+ Negative /hpf Abnormal 06-29-2020 [facility] ([place]) ([id number]) Comment: Performed By: #### HFP, URIC , TSH, LD, ANEU, ADIFF, CBC #### [address] [address] UA Mucous 2+ /hpf Normal 06-29-2020 [facility] ([place]) ([id number]) Comment: Performed By: #### HFP, URIC , TSH, LD, ANEU, ADIFF, CBC #### [address] [address] UA Squam Epithelial 5-10 0-20 Normal 06-29-2020 [facility] ([place]) (49550) Comment: Performed By: #### HFP, URIC , TSH, LD, ANEU, ADIFF, CBC #### [address] [address] UA WBC 50-100 0-5 Abnormal 06-29-2020 [facility] ([place]) (63691) Comment: Performed By: #### HFP, URIC , TSH, LD, ANEU, ADIFF, CBC #### [address] [address] UA Yeast 4+ /hpf Abnormal 06-29-2020 [facility] ([place]) (69042) Comment: Performed By: #### HFP, URIC , TSH, LD, ANEU, ADIFF, CBC #### [address] [address] ua on 2020-06-29 Color (U) Yellow Normal 06-29-2020 [facility] ([place] ([id number]) Comment: Performed By: #### HFP, URIC , TSH, LD, ANEU, ADIFF, CBC #### [address] [address] Glucose (U) [Mass/Vol] Negative Negative mg/dL Normal 020 [facility] ([place] (55787) Comment: Performed By: #### HFP, URIC , TSH, LD, ANEU, ADIFF, CBC #### [address] [address] Ketones Ql (U) Negative Neg-Trace Normal 06-29-2020 [facility] ([place]) (71036) Comment: Performed By: #### HFP, URIC , TSH, LD, ANEU, ADIFF, CBC #### [address] [address] UA Appear Cloudy Clear Abnormal 06-29-2020 [facility] ([place]) (79712) Comment: Performed By: #### HFP, URIC , TSH, LD, ANEU, ADIFF, CBC #### [address] [address] UA Blood Trace Neg-Trace Normal 06-29-2020 [facility] ([place]) (66810) Comment: Performed By: #### HFP, URIC , TSH, LD, ANEU, ADIFF, CBC #### [address] [address] UA Leuk Est Moderate Negative Abnormal 06-29-2020 [facility] ([place] (56995) Comment: Performed By: #### HFP, URIC , TSH, LD, ANEU, ADIFF, CBC #### [address] [address] UA Nitrite Negative Negative Normal 06-29-2020 [facility] ([place] ([id number]) Comment: Performed By: #### HFP, URIC , TSH, LD, ANEU, ADIFF, CBC #### [address] [address] UA pH 8.0 5.0 - 8.0 Normal 06-29-2020 [facility] ([place]) (03139) Comment: Performed By: #### HFP, URIC , TSH, LD, ANEU, ADIFF, CBC #### [address] [address] UA Protein Negative Negative Normal 06-29-2020 [facility] ([place] (49081) Comment: Performed By: #### HFP, URIC , TSH, LD, ANEU, ADIFF, CBC #### [address] [address] UA Spec Grav 1.015 1.006-1.029 Normal 06-29-2020 [facility] ([place]) (43404) Comment: Performed By: #### HFP, URIC , TSH, LD, ANEU, ADIFF, CBC #### [address] [address] UA Specimen Type Clean Catch Normal 06-29-2020 [facility] ([place]) ([id number]) Comment: Performed By: #### HFP, URIC , TSH, LD, ANEU, ADIFF, CBC #### [address] [address] UA Urobilinogen 0.2 0.2-1.0 E.U./dL Normal 06-29-2020 [facility] [place] (43464) Comment: Performed By: #### HFP, URIC , TSH, LD, ANEU, ADIFF, CBC #### [place] [id number] Urobilinogen Qn (U) Negative Neg-Trace Normal 06-29-2020 [facility] ([place]) (0000 0) Comment: Performed By: #### HFP, URIC , TSH, LD, ANEU, ADIFF, CBC #### [address] [address] rpcur on 2020-06-29 Protein [Mass/Vol] 27.3 G/dL Normal 06-29-2020 [facility] ([place] ([id number]) Comment: Performed By: #### HFP, URIC , TSH, LD, ANEU, ADIFF, CBC #### [address] [address] U Creatinine 63.8 mg/dL Normal 06-29-2020 [facility] ([place]) (67691) Comment: Performed By: #### HFP, URIC , TSH, LD, ANEU, ADIFF, CBC #### [address] [address] U Ratio Prot/Creat 0.4 ratio Normal 06-29-2020 [facility] ([place]) (05782) Comment: Result Comment: Unable to ca lculate this test result accurately. Results used to calculate this test are outside the reportable range. result calculated by rule GL _UR_PROT_NOTCALC_OLD (U Protein/U Creatinine) Performed By: #### HFP, URIC , TSH, LD, ANEU, ADIFF, CBC #### [address] [address] cur on 2020-06-29 CUR . Normal 06-29-2020 [facility] MICRO - Microbiology [facility] ([place]) ([id number]) PROCEDURE: Urine Culture [*1] SOURCE: Urine, Clean Catch BODY SITE: COLLECTED DATE/TIME: 06/28/20 10:56 EDT RECEIVED DATE/TIME: 06/28/2020 16:27 EDT START DATE/TIME: 06/28/2020 16:29 EDT FREE TEXT SOURCE: FINAL REPORTS Final Report [] Verified Date/Time/Personnel: 06/29/2020 10:29 EDT >100,000 organisms per mL Multiple bacterial morphotypes present. Probable Contamination. Suggest recollection if clinically indicated. Performing Locations *1: This test was performed at: [address], [facility]- , [place] Comment: Performed By: #### HFP, URIC , TSH, LD, ANEU, ADIFF, CBC #### [address] [address] cur on 2020-06-20 CUR . Normal 06-20-2020 [facility] - Microbiology [facility] ([place]) ([id number]) PROCEDURE: Urine Culture [*1] SOURCE: Urine, Clean Catch BODY SITE: COLLECTED DATE/TIME: 06/19/2020 17:05 EDT RECEIVED DATE/TIME: 06/19/2020 17:20 EDT START DATE/TIME: 06/19/2020 17:20 EDT FREE TEXT SOURCE: FINAL REPORTS Final Report [] Verified Date/Time/Personnel: 06/20/2020 11:28 EDT 10,000 - 50,000 cfu/ml Multiple bacterial morphotypes present. Probable Contamination. Suggest recollection if clinically indicated. Performing Locations *1: This test was performed at: [address], [address]- , [place] Comment: Performed By: #### HFP, URIC , TSH, LD, ANEU, ADIFF, CBC #### [address] [address] uamic on 2020-06-19 RBC (U) [#/Vol] Negative 0-2 /uL Normal 06-19-2020 [facility] [place] ([id number]) Comment: Performed By: #### HFP, URIC , TSH, LD, ANEU, ADIFF, CBC #### [address] [address] UA Squam Epithelial 3-5 0-20 Normal 06-19-2020 [facility] ([place] (95619) Comment: Performed By: #### HFP, URIC , TSH, LD, ANEU, ADIFF, CBC #### [address] [address] UA WBC 0-2 0-5 Normal 06-19-2020 [facility] ([place]) ([id number]) Comment: Performed By: #### HFP, URIC , TSH, LD, ANEU, ADIFF, CBC #### [address] [address] UA Yeast 2+ /hpf Abnormal 06-19-2020 [facility] ([place]) (62494) Comment: Performed By: #### HFP, URIC , TSH, LD, ANEU, ADIFF, CBC #### [address] [address] ua on 2020-06-19 Color (U) Dark Yellow Normal 06-19-2020 [facility] ([place] (67004) Comment: Performed By: #### HFP, URIC , TSH, LD, ANEU, ADIFF, CBC #### [address] [address] Glucose (U) [Mass/Vol] Negative Negative mg/dL Normal 020 [facility] ([place] (18975) Comment: Performed By: #### HFP, URIC , TSH, LD, ANEU, ADIFF, CBC #### [address] [address] Ketones Ql (U) Negative Neg-Trace Normal 06-19-2020 [facility] ([place] (78102) Comment: Performed By: #### HFP, URIC , TSH, LD, ANEU, ADIFF, CBC #### [address] [address] UA Appear Cloudy Clear Abnormal 06-19-2020 [facility] ([place]) (56359) Comment: Performed By: #### HFP, URIC , TSH, LD, ANEU, ADIFF, CBC #### [address] [address] UA Blood Negative Neg-Trace Normal 06-19-2020 [facility] ([place]) (19440) Comment: Performed By: #### HFP, URIC , TSH, LD, ANEU, ADIFF, CBC #### [address] [address] UA Leuk Est Moderate Negative Abnormal 06-19-2020 [facility] ([place] (30835) Comment: Performed By: #### HFP, URIC , TSH, LD, ANEU, ADIFF, CBC #### [address] [address] UA Nitrite Negative Negative Normal 06-19-2020 [facility] ([place] (75862) Comment: Performed By: #### HFP, URIC , TSH, LD, ANEU, ADIFF, CBC #### [address] [address] UA pH 6.0 5.0 - 8.0 Normal 06-19-2020 [facility] ([place]) ([id number]) Comment: Performed By: #### HFP, URIC , TSH, LD, ANEU, ADIFF, CBC #### [address] [address] UA Protein Trace Negative Normal 06-19-2020 [facility] ([place] (96834) Comment: Performed By: #### HFP, URIC , TSH, LD, ANEU, ADIFF, CBC #### [address] [address] UA Spec Grav 1.025 1.006-1.029 Normal 06-19-2020 [facility] ([place]) (80743) Comment: Performed By: #### HFP, URIC , TSH, LD, ANEU, ADIFF, CBC #### [address] [address] UA Specimen Type Clean Catch Normal 06-19-2020 [facility] ([place] ([id number]) Comment: Performed By: #### HFP, URIC , TSH, LD, ANEU, ADIFF, CBC #### [address] [address] UA Urobilinogen 1.0 0.2-1.0 E.U./dL Normal 06-19-2020 [facility] [place] (45674) Comment: Performed By: #### HFP, URIC , TSH, LD, ANEU, ADIFF, CBC #### [address] [address] Urobilinogen Qn (U) Negative Neg-Trace Normal 06-19-2020 [facility] ([place]) (0000 0) Comment: Performed By: #### HFP, URIC , TSH, LD, ANEU, ADIFF, CBC #### [address] [address] cur on 2020-06-16 CUR . Normal 06-16-2020 [facility] MICRO - Microbiology [facility] ([place]) ([id number]) PROCEDURE: Urine Culture [*1] SOURCE: Urine, Clean Catch BODY SITE: COLLECTED DATE/TIME: 06/14/2020 14:52 EDT RECEIVED DATE/TIME: 06/14/2020 19:32 EDT START DATE/TIME: 06/14/2020 19:34 EDT FREE TEXT SOURCE: FINAL REPORTS Final Report [] Verified Date/Time/Personnel: 06/16/2020 07:50 EDT 50,000 - 100,000 cfu/ml Multiple bacterial morphotypes present. Probable Contamination. Suggest recollection if clinically indicated. PRELIMINARY REPORTS Preliminary Report [] Verified Date/Time/Personnel: 06/15/2020 11:51 EDT Culture results pending. Performing Locations *1: This test was performed at: [address], [address]- , [place] Comment: Performed By: #### HFP, URIC , TSH, LD, ANEU, ADIFF, CBC #### [address] [address] uamic on 2020-06-14 RBC (U) [#/Vol] Rare 0-2 Normal 06-14-2020 [facility] ([place]) (51592) Comment: Performed By: #### HFP, URIC , TSH, LD, ANEU, ADIFF, CBC #### [address] [address] UA Bacteria 2+ Negative /hpf Abnormal 06-14-2020 [facility] ([place] (31646) Comment: Performed By: #### HFP, URIC , TSH, LD, ANEU, ADIFF, CBC #### [address] [address] UA CA Ox Crystal Trace Normal 06-14-2020 [facility] ([place]) ([id number]) Comment: Performed By: #### HFP, URIC , TSH, LD, ANEU, ADIFF, CBC #### [address] [address] UA Mucous Trace Normal 06-14-2020 [facility] ([place]) (84604) Comment: Performed By: #### HFP, URIC , TSH, LD, ANEU, ADIFF, CBC #### [address] [address] UA Squam Epithelial 10-20 0-20 Normal 06-14-2020 [facility] ([place]) ([id number]) Comment: Performed By: #### HFP, URIC , TSH, LD, ANEU, ADIFF, CBC #### [address] [address] UA WBC 10-20 0-5 Abnormal 06-14-2020 [facility] ([place]) ([id number]) Comment: Performed By: #### HFP, URIC , TSH, LD, ANEU, ADIFF, CBC #### [address] [address] UA Yeast Trace Abnormal 06-14-2020 [facility] ([place]) (44618) Comment: Performed By: #### HFP, URIC , TSH, LD, ANEU, ADIFF, CBC #### [address] [address] ua on 2020-06-14 Color (U) Dark Yellow Normal 06-14-2020 [facility] ([place] (66483) Comment: Performed By: #### HFP, URIC , TSH, LD, ANEU, ADIFF, CBC #### [address] [address] Glucose (U) [Mass/Vol] Negative Negative mg/dL Normal 020 [facility] ([place] (68700) Comment: Performed By: #### HFP, URIC , TSH, LD, ANEU, ADIFF, CBC #### [address] [address] Ketones Ql (U) Trace Neg-Trace Normal 06-14-2020 [facility] ([place]) (35255) Comment: Performed By: #### HFP, URIC , TSH, LD, ANEU, ADIFF, CBC #### [address] [address] UA Appear Cloudy Clear Abnormal 06-14-2020 [facility] ([place]) (97759) Comment: Performed By: #### HFP, URIC , TSH, LD, ANEU, ADIFF, CBC #### [address] [address] UA Blood Small Neg-Trace Abnormal 06-14-2020 [facility] ([place]) (43685) Comment: Performed By: #### HFP, URIC , TSH, LD, ANEU, ADIFF, CBC #### [address] [address] UA Leuk Est Large Negative Abnormal 06-14-2020 [facility] ([place]) (35893) Comment: Performed By: #### HFP, URIC , TSH, LD, ANEU, ADIFF, CBC #### [address] [address] UA Nitrite Negative Negative Normal 06-14-2020 [facility] ([place]) (45604) Comment: Performed By: #### HFP, URIC , TSH, LD, ANEU, ADIFF, CBC #### [address] [address] UA pH 7.5 5.0 - 8.0 Normal 06-14-2020 [facility]) (45219) Comment: Performed By: #### HFP, URIC , TSH, LD, ANEU, ADIFF, CBC #### [address] [address] UA Protein Trace Negative Normal 06-14-2020 [facility] ([place] ([id number]) Comment: Performed By: #### HFP, URIC , TSH, LD, ANEU, ADIFF, CBC #### [address] [address] UA Spec Grav 1.025 1.006-1.029 Normal 06-14-2020 [facility] ([place]) (57024) Comment: Performed By: #### HFP, URIC , TSH, LD, ANEU, ADIFF, CBC #### [place] [address] UA Specimen Type Clean Catch Normal 06-14-2020 [facility] ([place]) ([id number]) Comment: Performed By: #### HFP, URIC , TSH, LD, ANEU, ADIFF, CBC #### [address] [address] UA Urobilinogen 1.0 0.2-1.0 E.U./dL Normal 06-14-2020 [facility] [place]) (23776) Comment: Performed By: #### HFP, URIC , TSH, LD, ANEU, ADIFF, CBC #### [place] [address] Urobilinogen Qn (U) Negative Neg-Trace Normal 06-14-2020 [facility] ([place]) (0000 0) Comment: Performed By: #### HFP, URIC , TSH, LD, ANEU, ADIFF, CBC #### [address] [address] cur on 2020-06-01 CUR . Normal 06-01-2020 [facility] MICRO - Microbiology [facility] ([place]) ([id number]) PROCEDURE: Urine Culture [*1] SOURCE: Urine, Clean Catch BODY SITE: COLLECTED DATE/TIME: 05/30/20 16:11 EDT RECEIVED DATE/TIME: 05/30/2020 20:26 EDT START DATE/TIME: 05/30/2020 20:30 EDT FREE TEXT SOURCE: FINAL REPORTS Final Report [] Verified Date/Time/Personnel: 06/01/2020 07:49 EDT 10,000 - 50,000 cfu/ml Multiple bacterial morphotypes present. Probable Contamination. Suggest recollection if clinically indicated. PRELIMINARY REPORTS Preliminary Report [] Verified Date/Time/Personnel: 05/31/2020 10:54 EDT Culture results pending. Performing Locations *1: This test was performed at: [facility], [address] [place] [address], [address]- , [place] Comment: Performed By: #### HFP, URIC , TSH, LD, ANEU, ADIFF, CBC #### [address] [address] rpcur on 2020-05-31 Protein [Mass/Vol] 24.7 G/dL Normal 05-31-2020 [facility]) ([id number]) Comment: Performed By: #### HFP, URIC , TSH, LD, ANEU, ADIFF, CBC #### [address] [address] U Creatinine 177.3 mg/dL Normal 05-31-2020 [facility] ([place]) (09532) Comment: Performed By: #### HFP, URIC , TSH, LD, ANEU, ADIFF, CBC #### [address] [address] U Ratio Prot/Creat 0.1 ratio Normal 05-31-2020 [facility]) (35152) Comment: Result Comment: result calcu lated by rule GL_UR_PROT_NOTCALC_OLD (U Protein/U Creatinine) Performed By: #### HFP, URIC , TSH, LD, ANEU, ADIFF, CBC #### [address] [address] cur on 2020-05-30 CUR . Normal 05-30-2020 [facility] MICRO - Microbiology [facility] ([place]) ([id number]) PROCEDURE: Urine Culture [*1] SOURCE: Urine, Clean Catch BODY SITE: COLLECTED DATE/TIME: 05/29/20 15:46 EDT RECEIVED DATE/TIME: 05/29/2020 17:14 EDT START DATE/TIME: 05/29/2020 17:14 EDT FREE TEXT SOURCE: FINAL REPORTS Final Report [] Verified Date/Time/Personnel: 05/30/2020 11:34 EDT 50,000 - 100,000 cfu/ml Multiple bacterial morphotypes present. Probable Contamination. Suggest recollection if clinically indicated. Performing Locations *1: This test was performed at: [facility], [address] [place] [address], [address]- , [place] Comment: Performed By: #### HFP, URIC , TSH, LD, ANEU, ADIFF, CBC #### [address] [address] us abdomen limited on 2020-05-29 US ABDOMEN ORIGINAL Normal 05-29-2020 [facility] Limited ultrasound the [place] [facility] ([id number]) HISTORY: RIGHT upper quadrant abdominal pain COMPARISON: None FINDINGS: Visible portions o f the pancreas are normal. No focal liver lesion is evident. No biliary dilatation. The common duct is normal, 2 mm in diameter. Cholelithiasis is present. The gallbladder wa ll does not appear thickened and there is no adjacent fluid. Negative sonographic Becker's sign. No free fluid is evident. No additional contributory finding. IMPRESSION: Cholelithiasis. No evidence for acute cholecysti tis. Interpreted By: Jeremy Rudolph MD Preliminary Report By: Jeremy Rudolph MD Electronically Signed By: Jeremy Rudolph MD Dictated Date: 05/29/2020 7:55:15 PM Prelim Date: 05/29/2020 7:55:15 PM Sign Date: 05/29/2020 7:57:27 PM Ordering Provider:Lauren Darling uamic on 2020-05-29 RBC (U) [#/Vol] Negative 0-2 /uL Normal 05-29-2020 [facility] [place] ([id number]) Comment: Performed By: #### HFP, URIC , TSH, LD, ANEU, ADIFF, CBC #### [address] [address] UA Bacteria 1+ Negative /hpf Abnormal 05-29-2020 [facility] ([place]) ([id number]) Comment: Performed By: #### HFP, URIC , TSH, LD, ANEU, ADIFF, CBC #### [address] [address] UA Squam Epithelial 3-5 0-20 Normal 05-29-2020 [facility] ([place]) (66556) Comment: Performed By: #### HFP, URIC , TSH, LD, ANEU, ADIFF, CBC #### [address] [address] UA WBC 5-10 0-5 Abnormal 05-29-2020 [facility] ([place]) ([id number]) Comment: Performed By: #### HFP, URIC , TSH, LD, ANEU, ADIFF, CBC #### [address] [address] ua on 2020-05-29 Color (U) Yellow Normal 05-29-2020 [facility] ([place]) (01642) Comment: Performed By: #### HFP, URIC , TSH, LD, ANEU, ADIFF, CBC #### [address] [address] Glucose (U) [Mass/Vol] Negative Negative mg/dL Normal 020 [facility] ([place]) (17325) Comment: Performed By: #### HFP, URIC , TSH, LD, ANEU, ADIFF, CBC #### [address] [address] Ketones Ql (U) Negative Neg-Trace Normal 05-29-2020 [facility] ([place]) (72775) Comment: Performed By: #### HFP, URIC , TSH, LD, ANEU, ADIFF, CBC #### [address] [address] UA Appear Hazy Clear Abnormal 05-29-2020 [facility] ([place]) (52761) Comment: Performed By: #### HFP, URIC , TSH, LD, ANEU, ADIFF, CBC #### [address] [address] UA Blood Negative Neg-Trace Normal 05-29-2020 [facility]) ([id number]) Comment: Performed By: #### HFP, URIC , TSH, LD, ANEU, ADIFF, CBC #### [address] [address] UA Leuk Est Large Negative Abnormal 05-29-2020 [facility] ([place]) (98944) Comment: Performed By: #### HFP, URIC , TSH, LD, ANEU, ADIFF, CBC #### [address] [address] UA Nitrite Negative Negative Normal 05-29-2020 [facility] ([place]) (25665) Comment: Performed By: #### HFP, URIC , TSH, LD, ANEU, ADIFF, CBC #### [address] [address] UA pH 7.0 5.0 - 8.0 Normal 05-29-2020 [facility] ([place]) (88690) Comment: Performed By: #### HFP, URIC , TSH, LD, ANEU, ADIFF, CBC #### [address] [address] UA Protein Negative Negative Normal 05-29-2020 [facility] ([place]) (56010) Comment: Performed By: #### HFP, URIC , TSH, LD, ANEU, ADIFF, CBC #### [address] [address] UA Spec Grav 1.010 1.006-1.029 Normal 05-29-2020 [facility] ([place]) ([id number]) Comment: Performed By: #### HFP, URIC , TSH, LD, ANEU, ADIFF, CBC #### [address] [address] UA Specimen Type Clean Catch Normal 05-29-2020 [facility] ([place]) ([id number]) Comment: Performed By: #### HFP, URIC , TSH, LD, ANEU, ADIFF, CBC #### [address] [address] UA Urobilinogen 1.0 0.2-1.0 E.U./dL Normal 05-29-2020 [facility] ([place]) (94192) Comment: Performed By: #### HFP, URIC , TSH, LD, ANEU, ADIFF, CBC #### [address] [address] Urobilinogen Qn (U) Negative Neg-Trace Normal 05-29-2020 [facility] ([place]) (0000 0) Comment: Performed By: #### HFP, URIC , TSH, LD, ANEU, ADIFF, CBC #### [address] [address] rpcur on 2020-05-29 Protein [Mass/Vol] <6.0 g/dL Normal 05-29-2020 [facility] ([place]) (03548) Comment: Performed By: #### HFP, URIC , TSH, LD, ANEU, ADIFF, CBC #### [address] [address] U Creatinine 44.4 mg/dL Normal 05-29-2020 [facility] ([place]) (56332) Comment: Performed By: #### HFP, URIC , TSH, LD, ANEU, ADIFF, CBC #### [address] [address] U Ratio Prot/Creat Unable to Calculate Normal 0 05-29-2020 [facility] ([place]) (84031) Comment: Result Comment: Unable to ca lculate this test result accurately. Results used to calculate this test are outside the reportable range. result calculated by rule GL _UR_PROT_NOTCALC_OLD (U Protein/U Creatinine) Performed By: #### HFP, URIC , TSH, LD, ANEU, ADIFF, CBC #### [address] [address] ldh on 2020-05-29 LDH 166 120-246 U/L Normal 05-29-2020 [facility] ([place]) (11580) Comment: Performed By: #### HFP, URIC , TSH, LD, ANEU, ADIFF, CBC #### [address] [address] cmp on 2020-05-29 Albumin [Mass/Vol] 2.5 3.2-4.8 G/dL Low 05-29-2020 [facility] ([place]) (44174) Comment: Performed By: #### HFP, URIC , TSH, LD, ANEU, ADIFF, CBC #### [address] [address] Albumin/Globulin [Mass ratio] 0.8 0.9-1.6 ratio Low 05-29-2020 [facility]) (25164) Comment: Performed By: #### HFP, URIC , TSH, LD, ANEU, ADIFF, CBC #### [address] [address] ALP [Catalytic activity/Vol] 134 28-126 U/L High 0 05-29-2020 [facility] ([place]) (0000 0) Comment: Performed By: #### HFP, URIC , TSH, LD, ANEU, ADIFF, CBC #### [address] [address] ALT [Catalytic activity/Vol] 9 10-49 U/L Low 0 05-29-2020 [facility] ([place]) (0000 0) Comment: Performed By: #### HFP, URIC , TSH, LD, ANEU, ADIFF, CBC #### [address] [address] AST [Catalytic activity/Vol] 13 8-34 U/L Normal 0 05-29-2020 [facility] ([place]) (0000 0) Comment: Performed By: #### HFP, URIC , TSH, LD, ANEU, ADIFF, CBC #### [address] [address] Bili Total 0.20 0.20-1.20 mg/dL Normal 05-29-2020 [facility] ([place]) (10939) Comment: Result Comment: Use of this assay is not recommended for patients undergoing treatment with eltrombopag d ue to the potential for falsely elevated results. Performed By: #### HFP, URIC , TSH, LD, ANEU, ADIFF, CBC #### [address] [address] Calcium [Mass/Vol] 8.6 8.7-10.4 mg/dL Low 05-29-2020 [facility] ([place]) (79092) Comment: Result Comment: Note - New Reference Range in effect 20 Performed By: #### HFP, URIC , TSH, LD, ANEU, ADIFF, CBC #### [address] [address] Chloride [Moles/Vol] 105 98-110 mEq/L Normal 0 [facility] ([place]) (0000 0) Comment: Performed By: #### HFP, URIC , TSH, LD, ANEU, ADIFF, CBC #### [address] [address] CO2 [Moles/Vol] 25 22-32 mEq/L Normal 05-29-2020 [facility] ([place]) (93539) Comment: Performed By: #### HFP, URIC , TSH, LD, ANEU, ADIFF, CBC #### [address] [address] Creatinine [Mass/Vol] 0.48 0.50-1.20 mg/dL Low 05-29-20 20 [facility] ([place]) (0000 0) Comment: Performed By: #### HFP, URIC , TSH, LD, ANEU, ADIFF, CBC #### [address] [address] Electrolyte Balance 6.0 4.0-15.0 mEq/L Normal 05-29-2020 [facility] ([place]) (0000 0) Comment: Performed By: #### HFP, URIC , TSH, LD, ANEU, ADIFF, CBC #### [address] [address] Globulin (S) [Mass/Vol] 3.3 1.5-3.8 G/dL Normal 2019 [facility] ([place]) (0000 0) Comment: Performed By: #### HFP, URIC , TSH, LD, ANEU, ADIFF, CBC #### [address] [address] Glucose [Mass/Vol] 83 70-110 mg/dL Normal 05-29-2020 [facility] ([place]) (44530) Comment: Performed By: #### HFP, URIC , TSH, LD, ANEU, ADIFF, CBC #### [address] [address] Potassium [Moles/Vol] 4.2 3.5-5.0 mEq/L Normal 05-29-20 [facility] ([place]) (0000 0) Comment: Performed By: #### HFP, URIC , TSH, LD, ANEU, ADIFF, CBC #### [address] [address] Protein [Mass/Vol] 5.8 5.7-8.2 G/dL Normal 05-29-2020 [facility] ([place]) (03910) Comment: Result Comment: Note - New Reference Range in effect 20 Performed By: #### HFP, URIC , TSH, LD, ANEU, ADIFF, CBC #### [address] [address] Sodium [Moles/Vol] 136 136-145 mEq/L Normal 05-29-2020 [facility] ([place]) (87112) Comment: Performed By: #### HFP, URIC , TSH, LD, ANEU, ADIFF, CBC #### [address] [address] Urea nitrogen [Mass/Vol] 5.0 8.0-22.0 mg/dL Low 05-29 [facility] ([place]) (0000 0) Comment: Performed By: #### HFP, URIC , TSH, LD, ANEU, ADIFF, CBC #### [address] [address] Urea nitrogen/Creatinine 10.4 10.0-22.0 ratio Normal 05-29 [facility] [Mass ratio] [facility] ([place]) (91601) Comment: Performed By: #### HFP, URIC , TSH, LD, ANEU, ADIFF, CBC #### [address] [address] cbc on 2020-05-29 Erythrocyte distribution 14.8 11.5-15.5 % Normal 05-29 [facility] width (RBC) [Ratio] [facility] ([place]) (38208) Comment: Performed By: #### CBC, ADIF F, ANEU, LD, CMP, GFR #### [address] [address] Hematocrit (Bld) [Volume 29.1 34.0-46.0 % Low 05-29 [facility] fraction] ([place]) (0000 0) Comment: Performed By: #### CBC, ADIF F, ANEU, LD, CMP, GFR #### [place] [id number] Hemoglobin (Bld) 9.7 12.0-16.0 G/dL Low 05-29-2020 [facility] [Mass/Vol] ([place]) (000 00) Comment: Performed By: #### CBC, ADIF F, ANEU, LD, CMP, GFR #### [place] [address] MCH (RBC) [Entitic mass] 27.8 27.0-33.0 pg Normal 05-29 [facility] ([place]) (0000 0) Comment: Performed By: #### CBC, ADIF F, ANEU, LD, CMP, GFR #### [address] [address] MCHC (RBC) [Mass/Vol] 33.3 32.0-36.0 G/dL Normal 05-29-20 20 [facility] ([place]) (0000 0) Comment: Performed By: #### CBC, ADIF F, ANEU, LD, CMP, GFR #### [place] [phone] MCV (RBC) [Entitic vol] 83.6 80.0-99.0 fL Normal 2019 [facility] ([place]) (0000 0) Comment: Performed By: #### CBC, ADIF F, ANEU, LD, CMP, GFR #### [address] [address] Platelet mean volume 9.2 6.6-10.5 fL Normal 0 [facility] (Bld) [Entitic vol] ([place]) (54152) Comment: Performed By: #### CBC, ADIF F, ANEU, LD, CMP, GFR #### [address] [address] Platelets (Bld) [#/Vol] 223 150-450 10 3/mcL Normal 2019 [facility] ([place]) (07368) Comment: Performed By: #### CBC, ADIF F, ANEU, LD, CMP, GFR #### [address] [address] RBC (Bld) [#/Vol] 3.49 4.10-5.30 10 6/mcL Low 05-29-2020 [facility] ([place]) (0000 0) Comment: Performed By: #### CBC, ADIF F, ANEU, LD, CMP, GFR #### [address] [address] WBC (Bld) [#/Vol] 9.90 4.50-10.80 10 3/mcL Normal 05-29-2020 [facility] ([place]) (32019) Comment: Performed By: #### CBC, ADIF F, ANEU, LD, CMP, GFR #### [address] [address] .neuabs on Neutrophils (Bld) 7.70 2.25-8.10 10 3/mcL Normal 05-29-2020 [facility] [#/Vol] [facility] ([place]) (73206) Comment: Performed By: #### HFP, URIC , TSH, LD, ANEU, ADIFF, CBC #### [address] [address] .gfr on 2020-05-29 GFR >60 Normal 0 [facility] ([place]) (94842) Comment: Result Comment: GFR Population mean for Afri can Portuguese, Non- Americans Ages 20-29 = 116 mL/min/1.73 sq.m. Ages 30-39 = 107 mL/min/1.73 sq.m. Ages 40-49 = 99 mL/min/1.73 sq.m. Ages 50-59 = 93 mL/min/1.73 sq.m. Ages 60-69 = 85 mL/min/1.73 sq.m. Ages 70+ = 75 mL/min/1.73 sq .m. Chronic Kidney Disease: Less than 60 mL/min/1.73 square meters End Stage Renal Disease: Les s than 15 mL/min/1.73 square meters Performed By: #### HFP, URIC , TSH, LD, ANEU, ADIFF, CBC #### [address] [address] GFR Non- >60 Normal 05-29 [facility] ([place]) (37314) Comment: Result Comment: GFR Population mean for Afri can Portuguese, Non- Americans Ages 20-29 = 116 mL/min/1.73 sq.m. Ages 30-39 = 107 mL/min/1.73 sq.m. Ages 40-49 = 99 mL/min/1.73 sq.m. Ages 50-59 = 93 mL/min/1.73 sq.m. Ages 60-69 = 85 mL/min/1.73 sq.m. Ages 70+ = 75 mL/min/1.73 sq .m. Chronic Kidney Disease: Less than 60 mL/min/1.73 square meters End Stage Renal Disease: Les s than 15 mL/min/1.73 square meters Performed By: #### HFP, URIC , TSH, LD, ANEU, ADIFF, CBC #### [address] [address] .auto diff on 05-29 Ammonia (P) [Mass/Vol] 0.60 0.09-1.40 10 3/mcL Normal 020 [facility] ([place]) (12347) Comment: Performed By: #### HFP, URIC , TSH, LD, ANEU, ADIFF, CBC #### [address] [address] Basophils (Bld) 0.00 0.00-0.27 10 3/mcL Normal 05-29-2020 [facility] [#/Vol] [facility] ([place]) (96330) Comment: Performed By: #### HFP, URIC , TSH, LD, ANEU, ADIFF, CBC #### [address] [address] Basophils/100 WBC (Bld) 0.2 0.0-2.5 % Normal 2019 [facility] ([place]) (0000 0) Comment: Performed By: #### HFP, URIC , TSH, LD, ANEU, ADIFF, CBC #### [address] [address] Eosinophils (Bld) 0.00 0.00-0.65 10 3/mcL Normal 05-29-2020 [facility] [#/Vol] [facility] ([place]) (02935) Comment: Performed By: #### HFP, URIC , TSH, LD, ANEU, ADIFF, CBC #### [address] [address] Eosinophils/100 WBC (Bld) 0.5 0.0-6.0 % Normal 05-12 [facility] ([place]) (0000 0) Comment: Performed By: #### HFP, URIC , TSH, LD, ANEU, ADIFF, CBC #### [address] [address] Lymphocytes (Bld) 1.50 0.90-4.32 10 3/mcL Normal 05-29-2020 [facility] [#/Vol] [facility] ([place]) (31906) Comment: Performed By: #### HFP, URIC , TSH, LD, ANEU, ADIFF, CBC #### [address] [address] Lymphocytes/100 WBC (Bld) 15.2 20.0-40.0 % Low 05-12 [facility] ([place]) (0000 0) Comment: Performed By: #### HFP, URIC , TSH, LD, ANEU, ADIFF, CBC #### [address] [address] Monocytes/100 WBC (Bld) 6.1 2.0-13.0 % Normal 2019 [facility] ([place]) (0000 0) Comment: Performed By: #### HFP, URIC , TSH, LD, ANEU, ADIFF, CBC #### [address] [address] Neutrophils/100 WBC (Bld) 78.0 50.0-75.0 % High 05-12 [facility] ([place]) (0000 0) Comment: Performed By: #### HFP, URIC , TSH, LD, ANEU, ADIFF, CBC #### [facility] [address] [place] [address] novel coronavirus nasopharyngeal - osu specimen only on 2020-05-26 SARS-COV-2 NOT DETECTED NOT DETECTED Normal 05-26-2020 [facility] Ce nter (02868) Comment: Order Comment: Viral transpo rt media - Collection must be done while wearing N-95 mask, eye protection, gown and gloves. Please label ALL specimens as 2019-nCoV rule out and deliver by hand. This test was performed usin g real time PCR and has been approved for the qualitative detection of SARS-CoV-2 nucleic acid. The test has been authorized by the FDA under an emergency use authorization f or use by authorized laborat [facility]. Result Comment: Negative res ults do not preclude SARS-CoV-2 infection and should not be used as the so le basis for treatment or other patient management decisions. Optimu m specimen types and timing for peak viral levels during infections cau sed by SARS-CoV-2 has not been determined. The possibility of a false negat gricel result should especially be considered if the patient's recent exposur es or clinical presentation suggest that SARS-CoV-2 infection is prob able, and diagnostic tests for other causes of illness (e.g., other respira tory illness) are negative. Collection of a new specimen and re-testing may be necessary if the patient is critically ill or clinically deteriorating. Performed By: #### [id number] #### [facility] ([place] GARCÍA) [address] [place] [address] cur on 2020-05-18 CUR . Normal 05-18-2020 [facility] MICRO - Microbiology [facility] ([place]) (31603) PROCEDURE: Urine Culture [*1] SOURCE: Urine, Clean Catch BODY SITE: COLLECTED DATE/TIME: 05/16/2020 14:48 EDT RECEIVED DATE/TIME: 05/16/2020 18:22 EDT START DATE/TIME: 05/16/2020 18:22 EDT FREE TEXT SOURCE: FINAL REPORTS Final Report [] Verified Date/Time/Personnel: 05/18/2020 07:57 EDT 50,000 - 100,000 cfu/ml Multiple bacterial morphotypes prese nt. Probable Contamination. Suggest recollection if clinically indicated. PRELIMINARY REPORTS Preliminary Report [] Verified Date/Time/Personnel: 05/17/2020 10:19 EDT Culture results pending. Performing Locations *1: This test was performed at: [facility], [address] [place] [address], [address]- , [place] Comment: Performed By: #### CUR #### [address] [address] uric on 2020-05-16 Uric Acid Lvl 4.1 3.1-7.8 mg/dL Normal 05-16-2020 [facility] ([place]) (46357) Comment: Result Comment: Note - New Reference Range in effect 20 Performed By: #### HFP, URIC , TSH, LD, ANEU, ADIFF, CBC #### [address] [address] tsh on 2020-05-16 TSH Qn 1.737 0.480-4.170 mIU/mL Normal 05-16-2020 [facility] ([place]) (62598) Comment: Result Comment: Note - New Reference Range in effect 20 Performed By: #### HFP, URIC , TSH, LD, ANEU, ADIFF, CBC #### [address] [address] rpcur on 2020-05-16 Protein [Mass/Vol] 24.8 G/dL Normal 05-16-2020 [facility] ([place]) (29902) Comment: Performed By: #### RPCUR ### # [address] [address] U Creatinine 209.3 mg/dL Normal 05-16-2020 [facility] ([place]) (43013) Comment: Performed By: #### RPCUR ### # [address] [address] U Ratio Prot/Creat 0.1 ratio Normal 05-16-2020 [facility] ([place]) (15509) Comment: Result Comment: result calcu lated by rule GL_UR_PROT_NOTCALC_OLD (U Protein/U Creatinine) Performed By: #### RPCUR ### # [address] [address] ldh on 2020-05-16 LDH 147 120-246 U/L Normal 05-16-2020 [facility] ([place]) (35539) Comment: Performed By: #### HFP, URIC , TSH, LD, ANEU, ADIFF, CBC #### [address] [address] hfp on 2020-05-16 Bili Indirect Unable to Calculate 0.1-10.0 Normal 2019 [facility] ([place]) (04086) Comment: Result Comment: Unable to ca lculate this test result accurately. Results used to calculate this test are outside the reportable range. Performed By: #### HFP, URIC , TSH, LD, ANEU, ADIFF, CBC #### [place] [id number] Albumin [Mass/Vol] 2.8 3.2-4.8 G/dL Low 05-16-2020 [facility] ([place]) (75359) Comment: Performed By: #### HFP, URIC , TSH, LD, ANEU, ADIFF, CBC #### [address] [address] Albumin/Globulin [Mass 0.9 0.9-1.6 ratio Normal [address] [place] [address]] [facility] ([place]) (43126) Comment: Performed By: #### HFP, URIC , TSH, LD, ANEU, ADIFF, CBC #### [address] [address] ALP [Catalytic activity/Vol] 128 28-126 U/L High 0 05-16-2020 [facility] ([place]) (0000 0) Comment: Performed By: #### HFP, URIC , TSH, LD, ANEU, ADIFF, CBC #### [address] [address] ALT [Catalytic activity/Vol] 8 10-49 U/L Low 0 05-16-2020 [facility] ([place]) (0000 0) Comment: Performed By: #### HFP, URIC , TSH, LD, ANEU, ADIFF, CBC #### [place] [address] AST [Catalytic activity/Vol] 11 8-34 U/L Normal 0 05-16-2020 [facility] ([place]) (0000 0) Comment: Performed By: #### HFP, URIC , TSH, LD, ANEU, ADIFF, CBC #### [place] [address] Bili Direct <0.1 0.0-0.4 Normal 05-16-2020 [facility] ([place]) (11948) Comment: Result Comment: Use of this assay is not recommended for patients undergoing treatment with eltrombopag d ue to the potential for falsely elevated results. Performed By: #### HFP, URIC , TSH, LD, ANEU, ADIFF, CBC #### [place] [address] Bili Total 0.20 0.20-1.20 mg/dL Normal 05-16-2020 [facility] ([place]) (67328) Comment: Result Comment: Use of this assay is not recommended for patients undergoing treatment with eltrombopag d ue to the potential for falsely elevated results. Performed By: #### HFP, URIC , TSH, LD, ANEU, ADIFF, CBC #### [place] [address] Globulin (S) [Mass/Vol] 3.2 1.5-3.8 G/dL Normal 2019 [facility] ([place]) (0000 0) Comment: Performed By: #### HFP, URIC , TSH, LD, ANEU, ADIFF, CBC #### [place] [address] Protein [Mass/Vol] 6.0 5.7-8.2 G/dL Normal 05-16-2020 [facility] ([place]) (70362) Comment: Result Comment: Note - New Reference Range in effect 20 Performed By: #### HFP, URIC , TSH, LD, ANEU, ADIFF, CBC #### [place] [address] cbc on 2020-05-16 Erythrocyte distribution 14.5 11.5-15.5 % Normal 05-16 [facility] (RBC) [Ratio] [facility] ([place]) (02420) Comment: Performed By: #### HFP, URIC , TSH, LD, ANEU, ADIFF, CBC #### [place] [phone] Hematocrit (Bld) [Volume 30.4 34.0-46.0 % Low 05-16 [facility] fraction] ([place]) (0000 0) Comment: Performed By: #### HFP, URIC , TSH, LD, ANEU, ADIFF, CBC #### [place] [address] Hemoglobin (Bld) 10.3 12.0-16.0 G/dL Low 05-16-2020 [facility] [Mass/Vol] ([place]) (000 00) Comment: Performed By: #### HFP, URIC , TSH, LD, ANEU, ADIFF, CBC #### [place] [address] MCH (RBC) [Entitic mass] 28.1 27.0-33.0 pg Normal 05-16 [facility] ([place]) (0000 0) Comment: Performed By: #### HFP, URIC , TSH, LD, ANEU, ADIFF, CBC #### [place] [address] MCHC (RBC) [Mass/Vol] 33.8 32.0-36.0 G/dL Normal 05-16-20 [facility] ([place]) (0000 0) Comment: Performed By: #### HFP, URIC , TSH, LD, ANEU, ADIFF, CBC #### [place] [phone] MCV (RBC) [Entitic vol] 83.2 80.0-99.0 fL Normal 2019 [facility] ([place]) (0000 0) Comment: Performed By: #### HFP, URIC , TSH, LD, ANEU, ADIFF, CBC #### [place] [address] Platelet mean volume 9.8 6.6-10.5 fL Normal 0 [facility] (d) [Entitic vol] ([place]) (73604) Comment: Performed By: #### HFP, URIC , TSH, LD, ANEU, ADIFF, CBC #### [address] [address] Platelets (Bld) [#/Vol] 251 150-450 10 3/mcL Normal 2019 [facility] ([place]) (29430) Comment: Performed By: #### HFP, URIC , TSH, LD, ANEU, ADIFF, CBC #### [place] [address] RBC (Bld) [#/Vol] 3.66 4.10-5.30 10 6/mcL Low 05-16-2020 [facility] ([place]) (0000 0) Comment: Performed By: #### HFP, URIC , TSH, LD, ANEU, ADIFF, CBC #### [place] [address] WBC (Bld) [#/Vol] 10.10 4.50-10.80 10 3/mcL Normal 05-16-2020 [facility] ([place]) (81985) Comment: Performed By: #### HFP, URIC , TSH, LD, ANEU, ADIFF, CBC #### [address] [address] .neuabs on Neutrophils (Bld) 7.80 2.25-8.10 10 3/mcL Normal 05-16-2020 [facility] [#/Vol] [facility] ([place]) (96995) Comment: Performed By: #### HFP, URIC , TSH, LD, ANEU, ADIFF, CBC #### [address] [address] .auto diff on 05-16 Ammonia (P) [Mass/Vol] 0.60 0.09-1.40 10 3/mcL Normal 05-16- 020 [facility] ([place]) (31087) Comment: Performed By: #### HFP, URIC , TSH, LD, ANEU, ADIFF, CBC #### [address] [address] Basophils (Bld) 0.00 0.00-0.27 10 3/mcL Normal 05-16-2020 [facility] [#/Vol] [facility] ([place]) (02380) Comment: Performed By: #### HFP, URIC , TSH, LD, ANEU, ADIFF, CBC #### [address] [address] Basophils/100 WBC (Bld) 0.2 0.0-2.5 % Normal 2019 [facility] ([place]) (0000 0) Comment: Performed By: #### HFP, URIC , TSH, LD, ANEU, ADIFF, CBC #### [address] [address] Eosinophils (Bld) 0.10 0.00-0.65 10 3/mcL Normal 05-16-2020 [facility] [#/Vol] [facility] ([place]) (66759) Comment: Performed By: #### HFP, URIC , TSH, LD, ANEU, ADIFF, CBC #### [address] [address] Eosinophils/100 WBC (Bld) 0.5 0.0-6.0 % Normal 0 [facility] ([place]) (0000 0) Comment: Performed By: #### HFP, URIC , TSH, LD, ANEU, ADIFF, CBC #### [address] [address] Lymphocytes (Bld) 1.60 0.90-4.32 10 3/mcL Normal 05-16-2020 [facility] [#/Vol] [facility] ([place]) (42384) Comment: Performed By: #### HFP, URIC , TSH, LD, ANEU, ADIFF, CBC #### [address] [address] Lymphocytes/100 WBC (Bld) 16.0 20.0-40.0 % Low 08-0 [facility] ([place]) (0000 0) Comment: Performed By: #### HFP, URIC , TSH, LD, ANEU, ADIFF, CBC #### [address] [place], [place] [address] Monocytes/100 WBC (Bld) 5.8 2.0-13.0 % Normal 2019 [facility] ([place]) (0000 0) Comment: Performed By: #### HFP, URIC , TSH, LD, ANEU, ADIFF, CBC #### [place] [id number] [place] [address] Neutrophils/100 WBC (Bld) 77.5 50.0-75.0 % High 08- [facility] ([place]) (0000 0) Comment: Performed By: #### HFP, URIC , TSH, LD, ANEU, ADIFF, CBC #### [address] [address] urine microscop on 2020-01-08 Bacteria LM.HPF (Urine 3+ NEGATIVE Normal 020 [facility] sed) [#/Area] (12259 ) Comment: Order Comment: Urine Specime n Source+ CLEAN CATCH Performed By: #### L200.3001 , L200.3190 #### [facility] - [facility]ORATORY [address] [place] [address] RBC (U) [#/Vol] 1-3 0-2 Normal 01-08-2020 [facility] (53311) Comment: Order Comment: Urine Specime n Source+ CLEAN CATCH Performed By: #### L200.3001 , L200.3190 #### [facility] [address] [place] [address] SQUAMOUS MANY NEGATIVE Normal 01-08-2020 [facility] (19776) Comment: Order Comment: Urine Specime n Source+ CLEAN CATCH Performed By: #### L200.3001 , L200.3190 #### [facility] [address] [place] [address] WBC (U) [#/Vol] 10-20 0-5 Normal 01-08-2020 [facility] (79410) Comment: Order Comment: Urine Specime n Source+ CLEAN CATCH Performed By: #### L200.3001 , L200.3190 #### [facility] [address] [place] [address] ua w/c&s on 2019-12 Bilirubin Ql (U) NEGATIVE NEGATIVE Normal 01-08-2020 [facility] (33289) Comment: Order Comment: Urine Specime n Source+ CLEAN CATCH Performed By: #### L200.3001 , L200.3190 #### [facility] [address] [place] [address] Color (U) YELLOW YELLOW Normal 01-08-2020 [facility] (90835) Comment: Order Comment: Urine Specime n Source+ CLEAN CATCH Performed By: #### L200.3001 , L200.3190 #### [facility] [address] [place] [address] Glucose Ql (U) NEGATIVE NEGATIVE Normal 01-08-2020 [facility] (11080) Comment: Order Comment: Urine Specime n Source+ CLEAN CATCH Performed By: #### L200.3001 , L200.3190 #### [facility] [address] [place] [address] Hemoglobin Ql (U) NEGATIVE NEGATIVE Normal 01-08-2020 [facility] (66189) Comment: Order Comment: Urine Specime n Source+ CLEAN CATCH Performed By: #### L200.3001 , L200.3190 #### [facility] [address] [place] [address] Leukocyte esterase Test SMALL NEGATIVE Normal 2019 [facility] strip Ql (U) (68840) Comment: Order Comment: Urine Specime n Source+ CLEAN CATCH Performed By: #### L200.3001 , L200.3190 #### [facility] [address] [place] [address] Nitrite Ql (U) NEGATIVE NEGATIVE Normal 01-08-2020 [facility] (78953) Comment: Order Comment: Urine Specime n Source+ CLEAN CATCH Performed By: #### L200.3001 , L200.3190 #### [facility] [address] [place] [address] pH (U) 6.0 5.0-8.0 [pH] Normal 01-08-2020 [facility] (10140) Comment: Order Comment: Urine Specime n Source+ CLEAN CATCH Performed By: #### L200.3001 , L200.3190 #### [facility] [address] [place] [address] Protein Ql (U) NEGATIVE NEGATIVE Normal 01-08-2020 [facility] (86034) Comment: Order Comment: Urine Specime n Source+ CLEAN CATCH Performed By: #### L200.3001 , L200.3190 #### [facility] [address] [place] [address] URINE APPEARANC CLOUDY CLEAR Normal 01-08-2020 [facility] ([id number]) Comment: Order Comment: Urine Specime n Source+ CLEAN CATCH Performed By: #### L200.3001 , L200.3190 #### [facility] [address] [place] [address] URINE KETONE NEGATIVE NEGATIVE Normal 01-08-2020 [facility] (40593) Comment: Order Comment: Urine Specime n Source+ CLEAN CATCH Performed By: #### L200.3001 , L200.3190 #### [facility] [address] [place] [address] URINE SPECIFIC >=1.030 1.001-1.035 Normal 01-08-2020 [facility] ([id number]) Comment: Order Comment: Urine Specime n Source+ CLEAN CATCH Performed By: #### L200.3001 , L200.3190 #### [facility] [address] [place] [address] URINE UROBILINO 1.0 0.2-1.0 EU/DL Normal 01-08-2020 [facility] (02392) Comment: Order Comment: Urine Specime n Source+ CLEAN CATCH Performed By: #### L200.3001 , L200.3190 #### [facility] [address] [place] [address] type and screen on 2020-01-08 AB SCRN NEGATIVE Normal 01-08-2020 [facility] (11039) Comment: Performed By: #### B100.0700 #### [facility] [address] [place] [address] BLD TYPE O POSITIVE Normal 01-08-2020 [facility] (83102) Comment: Performed By: #### B100.0700 #### [facility] [address] [place] [address] emergency department report on 2020-01-08 EMERGENCY [facility] Normal 01-08-2020 [place] [address] Com munity REPORT [facility] EMERGENCY DEPARTMENT REPORT ([id number]) Patient: RODNEY SOUZA ARNAUD PAL M.D. [id number] 00 19 F Status: DEP ER ED Date of Service: 01/07/20 ADDENDUM: DIAGNOSTIC STUDIES: CBC; white count 8.4, hemogl obin 11.9, hematocrit 36.2, platelet count 213. Sodium 135, potassium 4, chloride 100, b icarb glucose 88, calcium 8.9. Urinalysis, 10 to 20 white cells, 1 to 3 red cells, 3+ bacteria. Ultrasound shows an 11-week 1-day IUP, heart rate of 166. Preliminary rep ort per automotive lube technician. The patient is given a liter of fluids. The patient will be started on Reglan. Prescription will be sent to her pharmacy of choice. Also will be star adrienne on Macrobid for UTI. She is to follow up with Dr. Kerns as scheduled. IMPRESSION: 1. Acute nausea and vomiting with . 2. . 3. Intrauterine . PLAN: For discharge. Report#: Dict ID [id number] / Int ID [id number] 01/17/20 0743 ARNAUD PAL M.D. cc: ARNAUD PAL M.D. << Signature on File>> Reported By: ARNAUD PAL M.D. Signed By: ARNAUD PAL M.D. Tests performed at: [address] [address] EMERGENCY [facility] Normal 01-08-2020 [place] [address] Com munity REPORT HEALTH INFORMATION MANAGEMENT [facility] EMERGENCY DEPARTMENT REPORT ([id number]) Patient: RODNEY SOUZA KEVKEVIN Rivas M.D. [id number] 00 19 F Status: [facility] ED Date of Service: 01/07/20 CHIEF COMPLAINT: Reported to be vomiting. HISTORY OF PRESENT ILLNESS: The patient is a 19-year-old female who presents with vomiting. Some abdominal cramping. She has had some spotting to day. She is primigravida, 11 weeks . She had an ultrasound of 5 weeks, did n ot show . She has been taking Zofran for the nauseousness. She has run ou t of it. She says it is not helping a whole lot of it. REVIEW OF SYSTEMS: CONSTITUTIONAL: No fevers or chills. ENT: No rhinorrhea or congestion. CARDIOVASCULAR: No chest pain or palpitations. RESPIRATORY: No shortness of breath or cough. GASTROINTESTINAL: No abdomin al cramping. Positive for nausea, vomiting. No diarrhea or constipation. GENITOURINARY: No dysuria, n o hematuria, no frequency. Positive vaginal spotting. MUSCULOSKELETAL: There is no edema. No weakness. NEUROLOGIC: No numbness or paresthesias. PAST MEDICAL HISTORY: Anxiety, anemia. PAST SURGICAL HISTORY: Bilateral tympanostomy tubes. SOCIAL HISTORY: No tobacco, ethanol, or illicit drug use. MEDICATIONS: 1. Zoloft. 2. Zofran. 3. vitamin. FAMILY HISTORY: Reported to be none. ALLERGIES: Latex. PHYSICAL EXAMINATION: VITAL SIGNS: Blood pressure 133/83, temperature is 98.2, pulse 89, respiratory rate of 16, pulse oximetry 98% on room air. GENERAL: Well-developed, well-nourished female, resting comf ortably. SKIN: Warm and dry. No rashes or lesions. HEENT: Head is normocephalic and atraumatic. Ocular examination reveals pupils to be equal , round, and reactive to lig ht, brisk. Examination of the oropharynx shows mucous membranes moist. No erythema, exudate, or lesions. CARDIOVASCULAR: Normal S1 an d 2. Regular rate and rhythm. No murmurs, gallops, or rubs. RESPIRATORY: Breath sounds c lear to auscultation bilaterally. No wheezes, rales, or rhonchi. ABDOMEN: Soft. Positive bowel sounds. There are no peritonea l signs. EXTREMITIES: Reveals no clubbing, cyanosis, or edema. NEUROLOGIC: The patient to be alert and oriented x3. No foca l deficits. MEDICAL DECISION MAKING: At this point, I have ordere d labs, urinalysis, as well as ultrasound. Ordered fluids, antiemetics for the patient. The patient was signed out to Dr. Holt at hours. Further management and disposition p ending workup results and based on the patient's clinical condition. Report#: Dict ID [id number] / Int ID [id number] 01/17/20 0743 ARNAUD PAL M.D. cc: ARNAUD PAL M.D. << Signature on File>> Reported By: ARNAUD PAL M.D. Signed By: ARNAUD PAL M.D. Tests performed at: [address] [address] ed prov note on ED PROV HNO ID: [id number] Normal 01-08-2020 [facility] NOTE Author: Arnaud Pal [facility] Service: ? [place] Author Type: Physician ([id number]) Type: ED Provider Notes Filed: 01/17/2020 7:52 AM Note Text: [place] [address] HEALTH INFORMATION MANAGEMENT EMERGENCY DEPARTMENT REPORT Patient: RODNEY SUOZA ARNAUD PAL M.D. [id number] 00 19 F Status: DEP ER ED Date of Service: 01/07/20 ADDENDUM: DIAGNOSTIC STUDIES: CBC; white count 8.4, hemoglobin 11.9, hematocrit 36.2, plat elet count 213. Sodium 135, potassium 4, chloride 100, bicarb gluco se 88, calcium 8.9. Urinalysis, 10 to 20 white cells, 1 to 3 red ce lls, 3+ bacteria. Ultrasound shows an 11-week 1-day IUP, heart rate of 166. Preliminary report per automotive lube technician. The patient is given a liter of fluids. The patient will be started on Reglan. Pres cription will be sent to her pharmacy of choice. Also will be started on Macrobid for UTI. She is to follow up with Dr. Kerns as scheduled. IMPRESSION: 1. Acute nausea and vomiting with . 2. . 3. Intrauterine . PLAN: For discharge. Report#: Dict ID [id number] / Int ID [id number] 01/17/20 0743 ARNAUD PAL M.D. cc: ARNAUD PAL M.D. << Signature on File>> Reported By: ARNAUD PAL M.D. Signed By: ARNAUD PAL M.D. Tests performed at: [address] [address] ED PROV HNO ID: [id number] Normal 01-08-2020 [facility] NOTE Author: Arnaud Pal [facility] Service: ? [place] Author Type: Physician ([id number]) Type: ED Provider Notes Filed: 01/17/2020 7:52 AM Note Text: [place] [address] HEALTH INFORMATION MANAGEMENT EMERGENCY DEPARTMENT REPORT Patient: RODNEY SOUZA ARNAUD PAL M.D. [id number] 00 19 F Status: DEP ER ED Date of Service: 01/07/20 CHIEF COMPLAINT: Reported to be vomiting. HISTORY OF PRESENT ILLNESS: The patient is a 19-year-old female who presents with vomiti ng. Some abdominal cramping. She has had some spotting today. She is primigravida, 11 weeks . She had an ultrasound of 5 weeks, did not show . She has been taking Zofran for the nause ousness. She has run out of it. She says it is not helping a whole lo t of it. REVIEW OF SYSTEMS: CONSTITUTIONAL: No fevers or chills. ENT: No rhinorrhea or congestion. CARDIOVASCULAR: No chest pain or palpitations. RESPIRATORY: No shortness of breath or cough. GASTROINTESTINAL: No abdominal cramping. Positive for nausea , vomiting. No diarrhea or constipation. GENITOURINARY: No dysuria, no hematuria, no frequency. Posit gricel vaginal spotting. MUSCULOSKELETAL: There is no edema. No weakness. NEUROLOGIC: No numbness or paresthesias. PAST MEDICAL HISTORY: Anxiety, anemia. PAST SURGICAL HISTORY: Bilateral tympanostomy tubes. SOCIAL HISTORY: No tobacco, ethanol, or illicit drug use. MEDICATIONS: 1. Zoloft. 2. Zofran. 3. vitamin. FAMILY HISTORY: Reported to be none. ALLERGIES: Latex. PHYSICAL EXAMINATION: VITAL SIGNS: Blood pressure 133/83, temperature is 98.2, pul se 89, respiratory rate of 16, pulse oximetry 98% on room air. GENERAL: Well-developed, well-nourished female, resting comf ortably. SKIN: Warm and dry. No rashes or lesions. HEENT: Head is normocephalic and atraumatic. Ocular examinat ion reveals pupils to be equal , round, and reactive to light, brisk. Ex amination of the oropharynx shows mucous membranes moist. No erythema, ex udate, or lesions. CARDIOVASCULAR: Normal S1 and 2. Regular rate and rhythm. No murmurs, gallops, or rubs. RESPIRATORY: Breath sounds clear to auscul tation bilaterally. No wheezes, rales, or rhonchi. ABDOMEN: Soft. Positive bowel sounds. There are no peritonea l signs. EXTREMITIES: Reveals no clubbing, cyanosis, or edema. NEUROLOGIC: The patient to be alert and oriented x3. No foca l deficits. MEDICAL DECISION MAKING: At this point, I have ordered labs, urinalysis, as well as u ltrasound. Ordered fluids, antiemetics for the patient. The patient was signed out to Dr. Holt at hours. Further management and disposition pending workup results and based on the patient's clinical condition . Report#: Dict ID [id number] / Int ID [id number] 01/17/20 0743 ARNAUD PAL M.D. cc: ARNAUD PAL M.D. << Signature on File>> Reported By: ARNAUD PAL M.D. Signed By: ARNAUD PAL M.D. Tests performed at: [address] [address] cbc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
== END | disposition home or self-care (01) ==
LOC: LABSPEC 15:10
PROVIDERS: PCP Family Medicine; Referring Provider Obstetrics & Gynecology; Visit Provider Obstetrics & Gynecology
DX: O23.42 Unspecified infection of urinary tract in pregnancy, second trimester (principal); Z3A.00 Weeks of gestation of pregnancy not specified
CPT/HCPCS: 81002; 87086; 87088

== ENCOUNTER 2020-04-15 14:15 | Outpatient (CLI) | payer BC, SELFPAY ==
[2020-04-15 14:29] VITALS: BP 121/75; PULSE 103; TEMP 37.1; O2SAT 97
[2020-04-15 14:30] VITALS: BP 121/75; PULSE 103
[2020-04-15 14:49] VITALS: BMI 40.4
--- NOTE | 2020-04-15 15:15 | OB.TRI.NOTE ---
- Problem List (1) 25 weeks gestation of Status: Acute (2) Hypertension affecting Status: Acute Qualifiers: Trimester: second trimester Qualified Code(s): O16.2 - Unspecified maternal hypertension, second trimester (3) Headache in Status: Acute Qualifiers: Trimester: second trimester Qualified Code(s): O26.892 - Other specified related conditions, second trimester; R51 - Headache History of Present Illness Date of Service: 04/15/20 Was patient seen by the physician?: Yes Reason For Visit: DECREASED MOVEMENT Date of Service: 04/15/20 Final JOSEPH: 07/25/20 Final JOSEPH Source: US <20 weeks Gestational age: 25 Weeks and 4 Days History of Present Illness: Called into office triage line Thursday and had left a couple of messages this weekend. She reports at work when bending over she gets spots and dizzy. Elevated BP at work 140-150/80-90s. Constant headache that isn't relieved with Tylenol. Allergies promethazine [From Phenergan] Allergy (Verified 01/18/20 12:39) Hives Review of Systems Constitutional: Denies: Chills, Fever, Weight Change Eyes: Reports: Vision Change - spots HEENT: Reports: Head Aches. Denies: Sinus Congestion, Sinus Drainage Cardiovascular: Denies: Chest Pain, Palpitations Respiratory: Denies: Cough, Shortness of breath at rest, Sputum production Gastrointestinal: Denies: Abdominal Pain, Nausea, Vomiting Genitourinary: Denies: Dysuria Musculoskeletal: Denies: Joint Pain, Joint Tenderness Skin: Denies: Rash, Wounds Neurological: Denies: Numbness, Tingling, Focal weakness Psychiatric: Reports: Anxiety. Denies: Depression, Homicidal Ideations, Suicidal Ideations Hematologic/ Lymphatic: Denies: Easy Bruising, Easy Bleeding Physical Exam Vitals: Vital Signs Temp Pulse BP Pulse Ox 98.7 F 103 H 121/75 H 97 04/15/20 14:29 04/15/20 14:30 04/15/20 14:30 04/15/20 14:29 General: Alert, Oriented x3, No apparent distress HEENT: Atraumatic, Normocephalic. Negative for: Thyromegaly, Lymphadenopathy Cardiovascular: Regular rate, Regular Rhythm Lungs: Clear to auscultation Abdomen: Bowel Sounds Present, Gravid Neurological: Deep Tendon Reflexes 2+/4 and Symmetrical, Neuro grossly intact DISTRIBUTION SYSTEM OPERATOR: Normal external genitalia. Negative for: Vulvar lesions NST - FHR Rate Baby A Baseline: 140 Variability:: Moderate Accelerations:: 15 x 15 Decelerations:: None NST Reactive:: Yes FHR Category:: Category I Uterine Activity:: quiet Impression/Plan A/P: Here with reports of headache, elevated blood pressure, pedal edema, blurred vision and left upper quadrant pain Blood pressure stable 120s/80s No headache after Tylenol and rest No edema noted, start wearing compression socks Pre-eclamptic panel drawn WNL, Hg 10.0 Educated on anxiety/stress affecting her body physically Rx for Fioricet, Zoloft, and Iron To discharge home and follow up as appropriate
[2020-04-15] MEDS: Acetaminophen 500 MG Tablet 1000 MG PO (15:28)
[2020-04-15 15:39] LABS: Hematocrit 31.7 % (37-47); Mean Corp Hgb Conc 31.5 g/dL (32-36); Mean Corpuscular Hgb 28.2 pg (27.0-32.0); Mean Corpuscular Volume 89.5 fL (81-99); Mean Platelet Vol. 11.2 fl (6.2-12.0); Platelet Count 269 K/mm3 (150-450); RBC Distribution Width SD 45.5 fl (35.1-43.9); Red Blood Count 3.54 M/mm3 (4.2-5.4); White Blood Count 10.3 K/mm3 (4.4-11.0)
[2020-04-15 15:59] LABS: ROM Internal Control Test YES-OK TO RESULT pt. (Internal QC); ROM Patient Test Negative (Negative)
[2020-04-15 16:03] LABS: AST(SGOT) 9 U/L (15-37); Alanine Aminotransfer ALT/SGPT 11 U/L (13-56); Creatinine, Serum 0.44 mg/dL (0.55-1.02); EST Glomerular Filtration Rate 193 mL/min (>60); Est Glom Filt Rate - Afr Amer 233 mL/min (>60); Estimated Creatinine Clearance 155.18 ml/min; Uric Acid 3.7 mg/dL (2.6-6.0)
[2020-04-15 16:13] LABS: Partial Thromboplast Time 26.6 Seconds (24.1-36.2)
[2020-04-15 16:15] LABS: Protein, Urine (Random) 10.9 mg/dL (<11.9); Protein:Creat Ratio 136 mg/g CRE (0-200)
--- NOTE | 2020-04-15 16:47 | PCM.WORK.EX ---
Work/School Excuse Work/School Excuse for:: Patient Please excuse this person from:: Work From: 04/15/20 through: 04/16/20
[2020-04-29 17:01] VITALS: TEMP 36.9; O2SAT 96
[2020-04-29 17:02] VITALS: BP 132/80; PULSE 103
== END 2020-04-15 16:55 | disposition home or self-care (01) ==
LOC: WPOUT 14:28 → WP 14:29
PROVIDERS: PCP Family Medicine; Visit Provider Obstetrics & Gynecology
DX: O16.2 Unspecified maternal hypertension, second trimester (principal); O12.02 Gestational edema, second trimester; O36.8120 Decreased fetal movements, second trimester, not applicable or unspecified; O26.892 Other specified pregnancy related conditions, second trimester; R51 Headache; R10.12 Left upper quadrant pain; H53.8 Other visual disturbances; O99.342 Other mental disorders complicating pregnancy, second trimester; F41.9 Anxiety disorder, unspecified; Z79.899 Other long term (current) drug therapy; Z3A.25 25 weeks gestation of pregnancy
CPT/HCPCS: 36415; 59025; 59050; 82565; 82570; 84112; 84156; 84450; 84460; 84550; 85027; 85610; 85730; 99218; G0378

== ENCOUNTER → 2020-04-25 09:50 | Outpatient (CLI) | payer BC, SELFPAY ==
[2020-04-15 14:49] VITALS: BMI 40.4
[2020-04-25 11:29] LABS: Hemoglobin 10.4 g/dL (12.0-15.0); Mean Corp Hgb Conc 30.6 g/dL (32-36); Mean Corpuscular Hgb 27.8 pg (27.0-32.0); Mean Corpuscular Volume 90.9 fL (81-99); Mean Platelet Vol. 11.6 fl (6.2-12.0); Platelet Count 281 K/mm3 (150-450); RBC Distribution Width CV 14.3 % (11.6-14.6); RBC Distribution Width SD 46.3 fl (35.1-43.9); Red Blood Count 3.74 M/mm3 (4.2-5.4); White Blood Count 11.5 K/mm3 (4.4-11.0)
[2020-04-25 11:30] LABS: Free T3 2.2 pg/mL (2.18-3.98); T4 Free Direct 1.02 ng/dL (0.76-1.46); Thyroid Stim Hormone (TSH) 2.51 uIU/mL (0.358-3.74)
== END ==
PROVIDERS: Visit Provider Obstetrics & Gynecology
DX: Z34.82 Encounter for supervision of other normal pregnancy, second trimester (principal); R94.6 Abnormal results of thyroid function studies
CPT/HCPCS: 36415; 83036; 84439; 84443; 84481; 85027

== ENCOUNTER 2020-04-29 16:45 | Outpatient (CLI) | payer BC, SELFPAY ==
[2020-04-29 16:59] VITALS: BMI 40.5
[2020-04-29] MEDS: Acetaminophen 500 MG Tablet 1000 MG PO (17:38)
--- NOTE | 2020-04-30 23:35 | OB.TRI.HP_ITS ---
- Problem List (1) 27 weeks gestation of Status: Acute History of Present Illness Date of Service: 04/29/20 Was patient seen by the physician?: No Reason For Visit: R/O LABOR Date of Service: 04/29/20 Final JOSEPH: 07/25/20 Final JOSEPH Source: US <20 weeks Gestational age: 27 Weeks and 6 Days History of Present Illness: In to triage with complaints of decreased movement, spotting, pelvic pain and lower back pain. Allergies promethazine [From Phenergan] Allergy (Verified 04/29/20 17:04) Hives Review of Systems Constitutional: Denies: Chills, Fever, Weight Change HEENT: Denies: Head Aches, Sinus Congestion, Sinus Drainage Cardiovascular: Denies: Chest Pain, Palpitations Respiratory: Denies: Cough, Shortness of breath at rest, Sputum production Gastrointestinal: Denies: Abdominal Pain, Nausea, Vomiting Genitourinary: Denies: Dysuria Musculoskeletal: Reports: Joint Pain - round ligament pain, pelvic pain. Denies: Joint Tenderness Skin: Denies: Rash, Wounds Neurological: Denies: Numbness, Tingling, Focal weakness Psychiatric: Denies: Anxiety, Depression, Homicidal Ideations, Suicidal Ideations Hematologic/ Lymphatic: Denies: Easy Bruising, Easy Bleeding Physical Exam General: Alert, Oriented x3, No apparent distress HEENT: Atraumatic, Normocephalic. Negative for: Thyromegaly, Lymphadenopathy Cardiovascular: Regular rate, Regular Rhythm Lungs: Clear to auscultation Abdomen: Bowel Sounds Present, Gravid Neurological: Deep Tendon Reflexes 2+/4 and Symmetrical, Neuro grossly intact UNDERWRITING ASSISTANT: Normal external genitalia. Negative for: Vulvar lesions Estimated gestational size: Appropriate for gestational size Presentation: Cephalic NST - FHR Rate Baby A Baseline: 130 Variability:: Moderate Accelerations:: 15 x 15 Decelerations:: None NST Reactive:: Yes FHR Category:: Category I Uterine Activity:: quiet Impression/Plan A/P: at 27 weeks gestation Here to rule out labor No spotting after initial episode, reports just after sexual intercourse No UC noted 1000mg Tylenol relieved pelvic and low back pain Reeducated again on Tylenol, rest, warmth, and belly band for support To discharge home
== END 2020-04-29 18:00 | disposition home or self-care (01) ==
LOC: WPOUT 16:54 → OBT 16:54
PROVIDERS: Visit Provider Obstetrics & Gynecology
DX: O36.8120 Decreased fetal movements, second trimester, not applicable or unspecified (principal); O26.892 Other specified pregnancy related conditions, second trimester; R10.2 Pelvic and perineal pain; M54.5 Low back pain; Z3A.27 27 weeks gestation of pregnancy
CPT/HCPCS: 59025; 59050; 99218; G0378